=== PATIENT | male | born 1945 | race Caucasian/White ===

== ENCOUNTER 2016-10-08 18:05 | Inpatient (IN) | payer MEDICARE, MEDICAID ==
[~2016-10-08] VITALS: Ht 157.5 cm; Wt 54.4 kg
[~2016-10-08 18:05] MED LIST: ASPI81TA82 PO; ATEN-100 PO; ATOR40TA PO; B-12500T3 PO; DIGO0.12 PO; FLON0.053; GLIM1TAB PO; LISI-360 PO; MECL-62 PO; METF1000 PO; NIAC500T18 PO; OMEP20TA PO; SENITAB; SLO-500T2 PO; SPIR25TA PO; TAMS0.4C67 PO; THEO200T27 PO; [UNRECOGNIZED DRUG - OTHER]
[2016-10-08 18:17] VITALS: BP 126/58; PULSE 105; RESP 16; TEMP 97.8; O2SAT 93
[2016-10-08] MEDS ORDERED: SODIUM CHLOR 0.9% 1000 ML INJ 1,000 ML IV ONE (18:30)
[2016-10-08] MEDS ORDERED: SODIUM CHLORIDE 0.9% FLUSH 10 ML FLUSH IVF PRN (18:30)
[2016-10-08 18:50] LABS: AUTOMATED NEUTROPHIL # 13.8 TH/MM3 (1.8-7.7); BASOPHIL # 0.1 TH/MM3 (0-0.2); BASOPHIL % 0.8 % (0.0-2.0); EOSINOPHIL # 0.1 TH/MM3 (0-0.4); EOSINOPHIL % 0.4 % (0.0-4.0); HEMATOCRIT 30.3 % (39.0-51.0); LYMPH % 4.1 % (9.0-44.0); LYMPHOCYTE # 0.6 TH/MM3 (1.0-4.8); MEAN CELL VOLUME 90.2 FL (80.0-100.0); MEAN CORPUSCULAR HEMOGLOBIN 30.6 PG (27.0-34.0); MEAN CORPUSCULAR HGB CONC 33.9 % (32.0-36.0); MONO % 4.8 % (0.0-8.0); NEUT % 89.9 % (16.0-70.0); PLATELET COUNT 246 TH/MM3 (150-450); RED BLOOD COUNT 3.36 MIL/MM3 (4.50-5.90); RED CELL DISTRIBUTION WIDTH 14.5 % (11.6-17.2); WHITE BLOOD COUNT 15.4 TH/MM3 (4.0-11.0)
[2016-10-08 18:54] LABS: BLOOD, URINE NEG (NEG); GLUCOSE,URINE NEG (NEG); GRANULAR CAST, URINE 5 /lpf; HYALINE CAST, URINE 76 /lpf (RARE); KETONE, URINE NEG (NEG); MUCUS URINE FEW /lpf (OCC); NITRITE,URINE NEG (NEG); PH, URINE 5.5 (5.0-8.5); SQUAMOUS EPITHELIAL CELL URINE 2 /hpf (0-5); TRANSITIONAL EPI CELLS, URINE <1 /hpf; URINE COLOR YELLOW (YELLW/STRAW)
[2016-10-08] MEDS ORDERED: RISP0.5T20 PO (18:54)
[2016-10-08] MEDS ORDERED: LISI10TA3 PO (18:54)
[2016-10-08] MEDS ORDERED: PRIL20CA9 PO (18:54)
[2016-10-08] MEDS ORDERED: GLIM1TAB PO (18:54)
[2016-10-08] MEDS ORDERED: METF1000 PO (18:54)
[2016-10-08] MEDS ORDERED: MECL-62 PO (18:54)
[2016-10-08] MEDS ORDERED: RISP1 PO (18:54)
[2016-10-08] MEDS ORDERED: METO25TA3 PO (18:54)
[2016-10-08] MEDS ORDERED: TAMS0.4C4 PO (18:54)
[2016-10-08] MEDS ORDERED: NIAC500T5 PO (18:54)
[2016-10-08] MEDS ORDERED: ATOR40TA16 PO (18:54)
[2016-10-08] MEDS ORDERED: SPIR25 PO (18:54)
[2016-10-08] MEDS ORDERED: ASPI81CH CHEW (18:54)
[2016-10-08] MEDS ORDERED: VENTAER INH (18:54)
[2016-10-08] MEDS ORDERED: NAPR250T PO (18:54)
[2016-10-08] MEDS ORDERED: LEXA10TA PO (18:54)
[2016-10-08] MEDS ORDERED: FLUT1SPR5 EACH NARE (18:54)
[2016-10-08] MEDS ORDERED: LORA-392 PO (18:54)
[2016-10-08 18:55] LABS: COMMENT (UR) CATH-CULT NOT IND; CULTURE IF INDICATED CATH CULTURE NOT IND
--- NOTE | 2016-10-08 18:57 | RADRPT ---
EXAM DATE/TIME: 10/08/2016 18:54 [place] COMPARISON: No previous studies available for comparison. INDICATIONS : Chest pain MEDICAL HISTORY : Cardiovascular disease. SURGICAL HISTORY : CABG. Fusion, lumbar. ENCOUNTER: Initial ACUITY: 1 day PAIN SCORE: 2/10 LOCATION: Bilateral chest FINDINGS: No infiltrate, effusion or pneumothorax. Suspected hyperexpansion. Heart size normal. Thoracic aorta is tortuous. Patient has had previous median sternotomy. CONCLUSION: No acute cardiopulmonary disease demonstrated. Fred Shanks MD on October 08, 2016 at 18:55 Board Certified Radiologist. This report was verified electronically.
[2016-10-08 19:00] VITALS: BP 126/58; PULSE 90; RESP 16; O2SAT 98
[2016-10-08 19:01] LABS: HEMO FLAGS AUTO DIFF
[2016-10-08 19:08] LABS: ANION GAP 8 MEQ/L (5-15); AST (GOT) 14 U/L (15-37); BICARBONATE 17.3 MEQ/L (21.0-32.0); BLOOD UREA NITROGEN 70 MG/DL (7-18); CHLORIDE 117 MEQ/L (98-107); GLOMERULAR FILTRATION RATE 30 ML/MIN (>89); MAGNESIUM 1.2 MG/DL (1.5-2.5); POTASSIUM 4.4 MEQ/L (3.5-5.1); SODIUM (NA) 142 MEQ/L (136-145)
[2016-10-08 19:12] LABS: ALKALINE PHOSPHATASE 52 U/L (45-117); ALT (GPT) 16 U/L (12-78); TOTAL BILIRUBIN ADULT 0.3 MG/DL (0.2-1.0)
--- NOTE | 2016-10-08 19:14 | PD ---
HPI Chief Complaint: Abnormal Results Time Seen by Provider: 18:21 Travel History International Travel<30 days: No Contact w/Intl Traveler<30days: No Traveled to known affect area: No History of Present Illness HPI This 71-year-old man who presents to the emergency department from [facility] for abnormal labs. Patient has been having a functional decline since he was admitted for back surgery back in May. He reportedly hasn't been eating and drinking well. alf obtain labs that showed worsening renal function, increased white count. Patient was also hypotensive. He was just transferred to the emergency department. EMS reports finding with a blood pressure 50-60 over palpable. This improved rapidly with IV fluids. History Past Medical History Narrative Medical COPD Essential hypertension GERD Depression Hyperlipidemia Diabetes BPH History of prostate cancer Tetanus Vaccination: Unknown Influenza Vaccination: Yes Social History Alcohol Use: No Tobacco Use: No Allergies-Medications (Allergen,Severity, Reaction): Coded Allergies: No Known Allergies (Unverified , 04/29/15) Reported Meds & Prescriptions Reported Meds & Active Scripts Active Digoxin 0.125 mg (Digoxin) 0.125 Mg Tab 0.125 Mg PO DAILY Metformin (Metformin HCl) 1,000 Mg Tab 1,000 Mg PO BID Atorvastatin 40 mg (Atorvastatin Calcium) 40 Mg Tab 1 Tab PO HS Spironolactone 25 Mg Tab 25 Mg PO DAILY Atenolol 25 Mg Tab 25 Mg PO DAILY Lisinopril 10 mg (Lisinopril) 10 Mg Tab 1 Tab PO DAILY Flomax (Tamsulosin HCl) 0.4 Mg Cap 0.4 Mg PO BID Glimepiride 1 Mg Tab 1 Mg PO DAILYAC Omeprazole 20 mg (Omeprazole) 20 Mg Tab 1 Tab PO DAILY Meclizine Hcl (Meclizine HCl) 25 Mg Tab 25 Mg PO BID PRN Flonase (Fluticasone Propionate) 0.05 % Naspr 1 Spr NA DAILY 30 Days 1 SPRAY EACH NOSTRIL Niacin (Niacinamide) 500 Mg Tab 500 Mg PO HS 30 Days Theophylline Er (Theophylline) 200 Mg Tab 400 Mg PO DAILY 30 Days Reported Ventolin Hfa 18 GM Inh (Albuterol Sulfate) 90 Mcg/Act Aer 2 Puff INH Q6H PRN Tamsulosin (Tamsulosin HCl) 0.4 Mg Cap 0.4 Mg PO BID Risperdal (Risperidone) 1 Mg Tab 1 Mg PO HS Risperdal (Risperidone) 0.5 Mg Tab 0.5 Mg PO DAILY Prilosec (Omeprazole) 20 Mg Cap 20 Mg PO DAILY Niacin 500 Mg Tab 500 Mg PO TID Naproxen 250 Mg Tab 250 Mg PO BID Metoprolol Tartrate 25 Mg Tab 25 Mg PO BID Metformin (Metformin HCl) 1,000 Mg Tab 1,000 Mg PO BIDPC With meals Meclizine (Meclizine HCl) 25 Mg Tab 25 Mg PO DIRECTED PRN Lisinopril 10 Mg Tab 10 Mg PO DAILY Lexapro (Escitalopram Oxalate) 10 Mg Tab 10 Mg PO DAILY Glimepiride 1 Mg Tab 1 Mg PO DAILY Take with breakfast or first main meal Flonase Nasal [place] (Fluticasone Nasal [place]) 50 Mcg/Act [place] 50 Mcg EACH NARE BID Atorvastatin (Atorvastatin Calcium) 40 Mg Tab 40 Mg PO HS Ativan (Lorazepam) 0.5 Mg Tab 0.5 Mg PO Q6H PRN Aspirin 81 Mg Chew 81 Mg CHEW DAILY Aldactone (Spironolactone) 25 Mg Tab 25 Mg PO DAILY Slo-Niacin (Niacin) 500 Mg Tab 500 Mg PO DAILY Senior Multivitamin Plus (Multiple Vitamins W/ Minerals) Unknown Strength Tab Unknown Dose B-12 (Cyanocobalamin) 500 Mcg Tab 500 Mcg PO DAILY [[facility] probiotics] Unknown Strength Unknown Dose Aspir-81 (Aspirin) 81 Mg Tab 81 Mg PO DAILY Review of Systems ROS Limitations: Clinical Condition Physical Exam Narrative GENERAL: 71 year-old man, appears older than his stated age. Appears weak and frail. SKIN: Focused skin assessment warm/dry. Decreased skin turgor. HEAD: Atraumatic. Normocephalic. EYES: Pupils equal and round. No scleral icterus. No injection or drainage. ENT: No nasal bleeding or discharge. Mucous membranes pink and moist. NECK: Trachea midline. No JVD. CARDIOVASCULAR: Regular rate and rhythm. No murmur appreciated. RESPIRATORY: No accessory muscle use. Clear to auscultation. Breath sounds equal bilaterally. GASTROINTESTINAL: Abdomen soft, non-tender, nondistended. Hepatic and splenic margins not palpable. MUSCULOSKELETAL: No obvious deformities. No edema. NEUROLOGICAL: Awake and alert. Confused. No obvious cranial nerve deficits. Motor grossly within normal limits. Normal speech. Data Data Last Documented VS Vital Signs Date Time Temp Pulse Resp B/P Pulse Ox O2 Delivery O2 Flow Rate FiO2 10/08/16 18:34 96 3 10/08/16 18:21 Nasal Cannula 10/08/16 18:17 97.8 105 16 126/58 Orders Electrocardiogram (10/08/16 18:21) Complete Blood Count With Diff (10/08/16 18:21) Comprehensive Metabolic Panel (10/08/16 18:21) Magnesium (Mg) (10/08/16 18:) Troponin I (10/08/16 18:) Chest, Single Ap (10/08/16 18:21) Ecg Monitoring (10/08/16 18:) Iv Access Insert/Monitor (10/08/16 18:) Oximetry (10/08/16 18:) Oxygen Administration (10/08/16 18:) Sodium Chloride 0.9% Flush (Ns Flush) (10/08/16 18:30) Urinalysis - C+S If Indicated (10/08/16 18:) Cath For Specimen (10/08/16 18:) Sodium Chlor 0.9% 1000 Ml Inj (Ns 1000 M (10/08/16 18:30) Labs Laboratory Tests Test 10/08/16 18:30 White Blood Count 15.4 TH/MM3 Red Blood Count 3.36 MIL/MM3 Hemoglobin 10.3 GM/DL Hematocrit 30.3 % Mean Corpuscular Volume 90.2 FL Mean Corpuscular Hemoglobin 30.6 PG Mean Corpuscular Hemoglobin 33.9 % Concent Red Cell Distribution Width 14.5 % Platelet Count 246 TH/MM3 Mean Platelet Volume 6.3 FL Neutrophils (%) (Auto) 89.9 % Lymphocytes (%) (Auto) 4.1 % Monocytes (%) (Auto) 4.8 % Eosinophils (%) (Auto) 0.4 % Basophils (%) (Auto) 0.8 % Neutrophils # (Auto) 13.8 TH/MM3 Lymphocytes # (Auto) 0.6 TH/MM3 Monocytes # (Auto) 0.7 TH/MM3 Eosinophils # (Auto) 0.1 TH/MM3 Basophils # (Auto) 0.1 TH/MM3 CBC Comment AUTO DIFF Urine Color YELLOW Urine Turbidity HAZY Urine pH 5.5 Urine Specific [place] 1.020 Urine Protein 30 mg/dL Urine Glucose (UA) NEG mg/dL Urine Ketones NEG mg/dL Urine Occult Blood NEG Urine Nitrite NEG Urine Bilirubin NEG Urine Urobilinogen LESS THAN 2.0 MG/DL Urine Leukocyte Esterase NEG Urine RBC LESS THAN 1 /hpf Urine WBC 4 /hpf Urine Squamous Epithelial 2 /hpf Cells Urine Transitional Epithelial <1 /hpf Cells Urine Hyaline Casts 76 /lpf Urine Granular Casts 5 /lpf Urine Mucus FEW /lpf Microscopic Urinalysis Comment CATH-CULT NOT IND Sodium Level 142 MEQ/L Potassium Level 4.4 MEQ/L Chloride Level 117 MEQ/L Carbon Dioxide Level 17.3 MEQ/L Anion Gap 8 MEQ/L Blood Urea Nitrogen 70 MG/DL Creatinine 2.21 MG/DL Estimat Glomerular Filtration 30 ML/MIN Rate Random Glucose 93 MG/DL Calcium Level 7.8 MG/DL Magnesium Level 1.2 MG/DL Aspartate Amino Transf 14 U/L (AST/SGOT) Albumin 2.3 GM/DL [facility] Medical Decision Making Medical Screen Exam Complete: Yes Emergency Medical Condition: Yes Differential Diagnosis Dehydration, renal failure, infection, electrolyte abnormality, other Narrative Course Medical decision making INITIAL: 71-year-old male presents emergency department for abnormal labs. Results show that he had a white count of 5.9 on the first of this month TO 19.2. He also had a BUN and creatinine of 38/1.1 now up to 79/2.3 indicative of prerenal azotemia and acute kidney injury. Etiology could be simply dehydration and drinking. Worsening intrinsic renal function, infection, renal artery stenosis, obstructive uropathy also possible. We'll check labs, x-ray, reassess. Patient was signed out to the oncoming physician at 7 PM for follow-up of diagnostic testing and likely admission. Chuckie Borrero MD Oct 08, 2016 19:14
--- NOTE | 2016-10-08 19:14 | PD ---
Data Data Last Documented VS Vital Signs Date Time Temp Pulse Resp B/P Pulse Ox O2 Delivery O2 Flow Rate FiO2 10/08/16 18:34 96 3 10/08/16 18:21 Nasal Cannula 10/08/16 18:17 97.8 105 16 126/58 Orders Electrocardiogram (10/08/16 18:21) Complete Blood Count With Diff (10/08/16 18:21) Comprehensive Metabolic Panel (10/08/16 18:) Magnesium (Mg) (10/08/16 18:) Troponin I (10/08/16 18:21) Chest, Single Ap (10/08/16 18:21) Ecg Monitoring (10/08/16 18:) Iv Access Insert/Monitor (10/08/16 18:) Oximetry (10/08/16 18:) Oxygen Administration (10/08/16 18:) Sodium Chloride 0.9% Flush (Ns Flush) (10/08/16 18:30) Urinalysis - C+S If Indicated (10/08/16 18:) Cath For Specimen (10/08/16 18:) Sodium Chlor 0.9% 1000 Ml Inj (Ns 1000 M (10/08/16 18:30) Labs Laboratory Tests Test 10/08/16 18:30 White Blood Count 15.4 TH/MM3 Red Blood Count 3.36 MIL/MM3 Hemoglobin 10.3 GM/DL Hematocrit 30.3 % Mean Corpuscular Volume 90.2 FL Mean Corpuscular Hemoglobin 30.6 PG Mean Corpuscular Hemoglobin 33.9 % Concent Red Cell Distribution Width 14.5 % Platelet Count 246 TH/MM3 Mean Platelet Volume 6.3 FL Neutrophils (%) (Auto) 89.9 % Lymphocytes (%) (Auto) 4.1 % Monocytes (%) (Auto) 4.8 % Eosinophils (%) (Auto) 0.4 % Basophils (%) (Auto) 0.8 % Neutrophils # (Auto) 13.8 TH/MM3 Lymphocytes # (Auto) 0.6 TH/MM3 Monocytes # (Auto) 0.7 TH/MM3 Eosinophils # (Auto) 0.1 TH/MM3 Basophils # (Auto) 0.1 TH/MM3 CBC Comment AUTO DIFF Differential Comment AUTO DIFF CONFIRMED Platelet Estimate NORMAL Platelet Morphology Comment NORMAL Ovalocytes 1+ Keratocytes 1+ Urine Color YELLOW Urine Turbidity HAZY Urine pH 5.5 Urine Specific [place] 1.020 Urine Protein 30 mg/dL Urine Glucose (UA) NEG mg/dL Urine Ketones NEG mg/dL Urine Occult Blood NEG Urine Nitrite NEG Urine Bilirubin NEG Urine Urobilinogen LESS THAN 2.0 MG/DL Urine Leukocyte Esterase NEG Urine RBC LESS THAN 1 /hpf Urine WBC 4 /hpf Urine Squamous Epithelial 2 /hpf Cells Urine Transitional Epithelial <1 /hpf Cells Urine Hyaline Casts 76 /lpf Urine Granular Casts 5 /lpf Urine Mucus FEW /lpf Microscopic Urinalysis Comment CATH-CULT NOT IND Sodium Level 142 MEQ/L Potassium Level 4.4 MEQ/L Chloride Level 117 MEQ/L Carbon Dioxide Level 17.3 MEQ/L Anion Gap 8 MEQ/L Blood Urea Nitrogen 70 MG/DL Creatinine 2.21 MG/DL Estimat Glomerular Filtration 30 ML/MIN Rate Random Glucose 93 MG/DL Calcium Level 7.8 MG/DL Magnesium Level 1.2 MG/DL Total Bilirubin 0.3 MG/DL Aspartate Amino Transf 14 U/L (AST/SGOT) Alanine Aminotransferase 16 U/L (ALT/SGPT) Alkaline Phosphatase 52 U/L Troponin I 0.05 NG/ML Total Protein 5.1 GM/DL Albumin 2.3 GM/DL MDM Medical Record Reviewed: Yes Supervised Visit with FLORECITA: No Narrative Course During the course of the patients emergency department visit, the patients history, examination, and differential diagnosis were reviewed with the patient. The patient had IV access obtained and blood work sent for analysis. The patient's case was checked out to me by Dr. Borrero who requested that I review the patient's laboratory studies and admit the patient. The patient is currently a resident at a care home. According to the patient's family member at the bedside the patient has been progressively decompensating since of back surgery in May 2016. The patient was sent to the emergency department for abnormal laboratory studies. The patient was noted to have a creatinine elevated from normal up to 3 with an associated elevated BUN. The patient has also not been eating or drinking well. The patient was diagnosed prior to his low back surgery with mild dementia that has progressed rapidly since his surgery. The patient was also noted on blood work prior to arrival he had a white count of 19,000. A workup has an safe to further evaluate for underlying infectious process as well as electrolyte derangements. The patient was initially provided normal saline IV fluids. The patients laboratory studies were reviewed and remarkable for white count of 15.4, hemoglobin 10.3, platelets 246 with 89.9 neutrophils, lymphocytes 4.1. CMP is remarkable for a chloride of 117, CO2 is low at 17.3 suspected to be related to dehydration, BUN 70, creatinine 2.21, glucose 93, calcium 7.8, magnesium 1.2 both of these will be supplemented IV, AST 14, total protein 5.1, albumin 2.3, urinalysis shows 30 protein, otherwise unremarkable. Radiology studies were reviewed and remarkable for a chest x-ray that shows no acute cardiopulmonary disease. The patients results were discussed with the patient, including the plan of care. I explained that further testing and/ or monitoring is indicated based on the patients history, examination, and/ or laboratory findings. Therefore, I recommended admission for additional evaluation. The patient expressed understanding and was agreeable with this plan. The patient was admitted to the hospital in stable condition and sent to a bed under the care of the [facility]. Physician Communication Physician Communication The patient's case will be discussed with Dr. Coates for admission. Diagnosis Primary Impression: Dehydration Additional Impressions: Acute renal failure Qualified Code: N17.9 - Acute renal failure, unspecified acute renal failure type Leukocytosis Qualified Code: D72.829 - Leukocytosis, unspecified type Hypomagnesemia Hypocalcemia Admitting Information Admitting Physician Requests: Admit Lorelei Little MD Oct 08, 2016 19:14
[2016-10-08 19:23] LABS: KERATOCYTES 1+ (NORMAL); OVALOCYTES 1+ (NORMAL); PLATELET ESTIMATE SMEAR NORMAL (NORMAL); PLATELET MORPHOLOGY NORMAL (NORMAL); SCAN/DIFF AUTO DIFF CONFIRMED
[2016-10-08] MEDS ORDERED: CALCIUM GLUCONATE INJ 1 GM in DEXTROSE 5% IN WATER 100ML INJ 100 ML IV ONE ×2 (20:00)
[2016-10-08] MEDS ORDERED: risperiDONE 0.5 MG TAB PO ONE (20:30)
[2016-10-08] MEDS ORDERED: NALOXONE HCL 0.4 MG/ML AMP IV PRN (20:30)
[2016-10-08] MEDS ORDERED: SODIUM CHLORIDE 0.9% FLUSH 10 ML FLUSH IV FLUSH PRN (20:30)
[2016-10-08 21:00] VITALS: BP 101/51; PULSE 95; RESP 17; TEMP 97.8; O2SAT 97
[2016-10-08] MEDS: MAGNESIUM SULFATE 1 GM PREMIX 100 ML IV SCH ×2 (21:34→21:57)
[2016-10-08] MEDS: SODIUM CHLORIDE 0.9% FLUSH 10 ML FLUSH IV FLUSH SCH (21:34)
--- NOTE | 2016-10-08 21:47 | EKG ---
Date Performed: 10/08/2016 Time Performed: 18:34:36 PTAGE: 71 years EKG: BASELINE ARTIFACT PRESENT. Probable Sinus rhythm with premature ventricular contraction POSSIBLE LEFT ATRIAL ENLARGEMENT SEPTAL MYOCARDIAL INFARCTION ABNORMAL ECG Would repeat electrocardiogram NO PREVIOUS TRACING DOCTOR: Roosevelt Philip Interpretating Date/Time 10/08/2016 21:46:20
--- NOTE | 2016-10-08 22:39 | HHI.HP ---
HPI Service [facility] Primary Care Physician Jignesh Alba MD Admission Diagnosis Dehydration, hypomag, hypocalcemia, ARF Diagnoses: (1) Diarrhea (2) Dementia with aggressive behavior (3) Declining functional status (4) Leukocytosis (5) Acute renal failure (6) Dehydration (7) Hypomagnesemia Chief Complaint: Patient has been increasingly weak and has had abnormal blood work results at his senior care facility Travel History International Travel<30 Days: No Contact w/Intl Traveler <30 Da: No Traveled to Known Affected Are: No History of Present Illness Mr. Scott is a 71 year-old male with a history of coronary artery disease status post quintuple cardiac bypass in 1996, CHF, type 2 diabetes mellitus, hypertension, hyperlipidemia, COPD, prostate cancer status post radiation treatment 2012, and chronic back pain related to degenerative disc disease who presented to the ER on 10/08/2016 from [facility] for evaluation of abnormal labs obtained at the facility: Worsening renal function, increased white count. The patient has been having functional decline following back surgery performed in June 12, 2017. The patient was reportedly initially hypotensive and improved with IV fluids per EMS. Leukocytosis is noted with white blood count of 15.4 with neutrophilia. The patient also has anemia with hemoglobin 10.3. Prerenal azotemia is present with BUN 70, creatinine 2.21, and estimated GFR 30. Hypomagnesemia noted with magnesium level I.2. The patient is quite lethargic and has some cognitive impairments. Much of history was taken from patient's sister Neela Rivera at bedside. Current functional status: Walks with help of a walker, able to feed self No nausea or vomiting, no fever Not eating or drinking well x 3 weeks Not sure if he's been having diarrhea in facility but had watery diarrhea here in ER No Daniels prior to ER visit BP has been low since Saturday Worsening dementia since back surgery June 12, 2017 - went home and fell - back to hospital ([facility] 06/26/16) Mid June he went to rehab and has been there since Symptoms per patient report: Denies cp, nausea, abdominal pain, Reports diarrhea for a few days No burning or pain with urination, no hematuria No black or red stool No syncope Had previously seen a physician at [facility] . Review of Systems Except as stated in HPI: all other systems reviewed are Neg Past Family Social History Past Medical History Type 2 diabetes mellitus diagnosed about 12 years ago Hypertension Hyperlipidemia COPD CHF Prostate cancer status post 45 radiation treatments 2013 Left Achilles tendon rupture 2003 Bilateral hernia Disc herniation at C4 Degenerative disc disease Glaucoma Thalidomide exposure prenatally . 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 Reported Medications Reported Meds & Active Scripts Active Digoxin 0.125 mg (Digoxin) 0.125 Mg Tab 0.125 Mg PO DAILY Metformin (Metformin HCl) 1,000 Mg Tab 1,000 Mg PO BID Atorvastatin 40 mg (Atorvastatin Calcium) 40 Mg Tab 1 Tab PO HS Spironolactone 25 Mg Tab 25 Mg PO DAILY Atenolol 25 Mg Tab 25 Mg PO DAILY Lisinopril 10 mg (Lisinopril) 10 Mg Tab 1 Tab PO DAILY Flomax (Tamsulosin HCl) 0.4 Mg Cap 0.4 Mg PO BID Glimepiride 1 Mg Tab 1 Mg PO DAILYAC Omeprazole 20 mg (Omeprazole) 20 Mg Tab 1 Tab PO DAILY Meclizine Hcl (Meclizine HCl) 25 Mg Tab 25 Mg PO BID PRN Flonase (Fluticasone Propionate) 0.05 % Naspr 1 Spr NA DAILY 30 Days 1 SPRAY EACH NOSTRIL Niacin (Niacinamide) 500 Mg Tab 500 Mg PO HS 30 Days Theophylline Er (Theophylline) 200 Mg Tab 400 Mg PO DAILY 30 Days Reported Ventolin Hfa 18 GM Inh (Albuterol Sulfate) 90 Mcg/Act Aer 2 Puff INH Q6H PRN Tamsulosin (Tamsulosin HCl) 0.4 Mg Cap 0.4 Mg PO BID Risperdal (Risperidone) 1 Mg Tab 1 Mg PO HS Risperdal (Risperidone) 0.5 Mg Tab 0.5 Mg PO DAILY Prilosec (Omeprazole) 20 Mg Cap 20 Mg PO DAILY Niacin 500 Mg Tab 500 Mg PO TID Naproxen 250 Mg Tab 250 Mg PO BID Metoprolol Tartrate 25 Mg Tab 25 Mg PO BID Metformin (Metformin HCl) 1,000 Mg Tab 1,000 Mg PO BIDPC With meals Meclizine (Meclizine HCl) 25 Mg Tab 25 Mg PO DIRECTED PRN Lisinopril 10 Mg Tab 10 Mg PO DAILY Lexapro (Escitalopram Oxalate) 10 Mg Tab 10 Mg PO DAILY Glimepiride 1 Mg Tab 1 Mg PO DAILY Take with breakfast or first main meal Flonase Nasal [place] (Fluticasone Nasal [place]) 50 Mcg/Act [place] 50 Mcg EACH NARE BID Atorvastatin (Atorvastatin Calcium) 40 Mg Tab 40 Mg PO HS Ativan (Lorazepam) 0.5 Mg Tab 0.5 Mg PO Q6H PRN Aspirin 81 Mg Chew 81 Mg CHEW DAILY Aldactone (Spironolactone) 25 Mg Tab 25 Mg PO DAILY Slo-Niacin (Niacin) 500 Mg Tab 500 Mg PO DAILY Senior Multivitamin Plus (Multiple Vitamins W/ Minerals) Unknown Strength Tab Unknown Dose B-12 (Cyanocobalamin) 500 Mcg Tab 500 Mcg PO DAILY [[facility] probiotics] Unknown Strength Unknown Dose Aspir-81 (Aspirin) 81 Mg Tab 81 Mg PO DAILY . Allergies: Coded Allergies: No Known Allergies (Unverified , 04/29/15) Active Ordered Medications Current Medications Sodium Chloride 2 ml 2 ml UNSCH PRN IVF FLUSH AFTER USING IV ACCESS; Start at 18:30; Stop 10/08/16 at 20:34; Status DC Sodium Chloride 1,000 ml @ 2,000 mls/hr Q30M ONCE IV Last administered on 10/08 21:33; Start 10/08/16 at 18:30; Stop 10/08/16 at 18:59; Status DC Calcium Gluconate 1 gm/Dextrose 110 ml @ 110 mls/hr ONCE ONCE IV Last administered on 10/08/16 21:34; Start 10/08/16 at 20:00; Stop 10/08/16 at 20:59 ; Status DC Magnesium Sulfate/ Dextrose (Magnesium Sulfate 1 Gm Premix) 100 ml @ 100 mls/ hr Q1H IV Last administered on 10/08/16 21:57; Start 10/08/16 at 20:00; Stop 10/08/16 at 21:59; Status DC Risperidone (risperDAL) 0.5 mg ONCE ONCE PO Last administered on 10/08/16 21: 56; Start 10/08/16 at 20:30; Stop 10/08/16 at 20:31; Status DC Sodium Chloride (NS Flush) 2 ml UNSCH PRN IV FLUSH FLUSH AFTER USING IV ACCESS ; Start 10/08/16 at 20:30 Sodium Chloride (NS Flush) 2 ml BID IV FLUSH Last administered on 10/08/16t 21: 34; Start 10/08/16 at 21:00 Naloxone HCl (Narcan Inj) 0.4 mg UNSCH PRN IV SEE LABEL COMMENTS; Start at 20:30 . Family History heart problems, CVA . Social History Tobacco: Smoked 1 pack per day for 30 years but quit in 1996 Alcohol: "a little" socially per sister Illicit Drugs: Denied by sister . Physical Exam Vital Signs Vital Signs Date Time Temp Pulse Resp B/P Pulse Ox O2 Delivery O2 Flow Rate FiO2 10/08/16 18:34 96 3 10/08/16 18:21 98 Nasal Cannula 2 10/08/16 18:17 97.8 105 16 126/58 93 Physical Exam GENERAL: This is a pale, cachectic elderly male patient, who appears somewhat lethargic. SKIN: No rashes, ecchymoses or lesions. Cool and dry. HEAD: Atraumatic. Normocephalic. Temporal wasting noted. EYES: No scleral icterus. No injection or drainage. ENT: Nose without bleeding, purulent drainage. NECK: Trachea midline. No JVD or lymphadenopathy. CARDIOVASCULAR: Regular rate and rhythm without murmurs, gallops, or rubs. RESPIRATORY: Clear to auscultation. Breath sounds equal bilaterally. No wheezes , rales, or rhonchi. GASTROINTESTINAL: Abdomen soft, non-tender, nondistended. No guarding. MUSCULOSKELETAL: Extremities without clubbing, cyanosis, or edema. No calf tenderness. NEUROLOGICAL: Able to be awakened but lives mostly with his eyes closed and appears lethargic. Answers questions appropriately to the best of his cognitive ability. . Laboratory Laboratory Tests Test 10/08/16 18:30 White Blood Count 15.4 Red Blood Count 3.36 Hemoglobin 10.3 Hematocrit 30.3 Mean Corpuscular Volume 90.2 Mean Corpuscular Hemoglobin 30.6 Mean Corpuscular Hemoglobin 33.9 Concent Red Cell Distribution Width 14.5 Platelet Count 246 Mean Platelet Volume 6.3 Neutrophils (%) (Auto) 89.9 Lymphocytes (%) (Auto) 4.1 Monocytes (%) (Auto) 4.8 Eosinophils (%) (Auto) 0.4 Basophils (%) (Auto) 0.8 Neutrophils # (Auto) 13.8 Lymphocytes # (Auto) 0.6 Monocytes # (Auto) 0.7 Eosinophils # (Auto) 0.1 Basophils # (Auto) 0.1 CBC Comment AUTO DIFF Differential Comment AUTO DIFF CONFIRMED Platelet Estimate NORMAL Platelet Morphology Comment NORMAL Ovalocytes 1+ Keratocytes 1+ Urine Color YELLOW Urine Turbidity HAZY Urine pH 5.5 Urine Specific [place] 1.020 Urine Protein 30 Urine Glucose (UA) NEG Urine Ketones NEG Urine Occult Blood NEG Urine Nitrite NEG Urine Bilirubin NEG Urine Urobilinogen LESS THAN 2.0 Urine Leukocyte Esterase NEG Urine RBC LESS THAN 1 Urine WBC 4 Urine Squamous Epithelial 2 Cells Urine Transitional Epithelial <1 Cells Urine Hyaline Casts 76 Urine Granular Casts 5 Urine Mucus FEW Microscopic Urinalysis Comment CATH-CULT NOT IND Sodium Level 142 Potassium Level 4.4 Chloride Level 117 Carbon Dioxide Level 17.3 Anion Gap 8 Blood Urea Nitrogen 70 Creatinine 2.21 Estimat Glomerular Filtration 30 Rate Random Glucose 93 Calcium Level 7.8 Magnesium Level 1.2 Total Bilirubin 0.3 Aspartate Amino Transf 14 (AST/SGOT) Alanine Aminotransferase 16 (ALT/SGPT) Alkaline Phosphatase 52 Troponin I 0.05 Total Protein 5.1 Albumin 2.3 Result Diagram: 10/08/160 10/08/16 183 Imaging Last Impressions Chest X-Ray 10/08/16 1821 Signed Impressions: Service Date/Time: Saturday, October 08, 2016 18:54 - CONCLUSION: No acute cardiopulmonary disease demonstrated. Fred Shanks MD . Assessment and Plan Problem List: (1) Diarrhea ICD Code: R19.7 Status: Acute (2) Dementia with aggressive behavior ICD Code: F03.91 Status: Acute (3) Declining functional status ICD Code: R53.81 Status: Acute (4) Leukocytosis ICD Code: D72.829 Status: Acute (5) Hypomagnesemia ICD Code: E83.42 Status: Acute (6) Acute renal failure ICD Code: N17.9 Status: Acute (7) Dehydration ICD Code: E86.0 Status: Acute Assessment and Plan Mr. Scott is a 71 year-old male who presented to the ER on 10/08/2016 from [facility] for evaluation of abnormal labs obtained at the facility: Worsening renal function, increased white count. The patient has been having functional/cognitive decline following back surgery performed in June 12, 2017. Diarrhea- lives at SNF - concern for C. Diff - check for c. diff - consider CT abdomen/pelvis if testing negative and symptoms persist Dementia with aggressive behaviors since June 12, 2016 surgery; now with accompanying functional decline - check CT of head for organic causes - check EEG to r/o seizure activity Leukocytosis - white blood count of 15.4 with neutrophilia. - CXR with no acute cardiopulmonary disease - Afebrile in ER - patient with diarrhea - infectious gastroenteritis? - Repeat CBC in a.m. and follow results Anemia - hemoglobin 10.3, hct 30.3. - no prior labs for comparison - Repeat CBC in a.m. and follow results Acute renal failure/prerenal azotemia likely secondary to dehydration - BUN 70, creatinine 2.21, and estimated GFR 30. - NS bolus given in ER - Recheck bmp in a.m. and follow results Hypomagnesemia - Magnesium level I.2 - Replacement given in ER - Recheck magnesium level in a.m. and replace as needed DVT prophylaxis - Heparin 5000 units q8h subq Written by Jaz Rivera, acting as scribe for Dr. Coates on 10/08/16 at 22:39. This note was transcribed by scribe [Jaz Rivera]. I, Dr. Dante Coates personally performed the history, physical exam, and medical decision making; and confirmed the accuracy of the information in the transcribed note. Authenticated by Dr. Dante Coates on 10/08/16 at 22:39. Code Status DNR signed by patient on chart dated 07/04/2016 also confirmed DNR code status with healthcare surrogate Neela Rivera, sister at bedside . Discussed Condition With ER physician and patient's sister . Physician Certification 2 Midnight Certification Type: Admission for Inpatient Services Order for Inpatient Services The services are ordered in accordance with Medicare regulations or non- Medicare payer requirements, as applicable. In the case of services not specified as inpatient-only, they are appropriately provided as inpatient services in accordance with the 2-midnight benchmark. Estimated LOS (days): 3 days is the estimated time the patient will need to remain in the hospital, assuming treatment plan goals are met and no additional complications. Post-Hospital Plan: SNF Problem Qualifiers (1) Leukocytosis: Qualified Code: D72.829 - Leukocytosis, unspecified type (2) Acute renal failure: Qualified Code: N17.9 - Acute renal failure, unspecified acute renal failure type Jaz Rivera Oct 08, 2016 22:39 Dante Coates MD Oct 09, 2016 07:57
[2016-10-08 23:21] VITALS: BP 134/60; PULSE 100; RESP 20; TEMP 98.1; O2SAT 100
[2016-10-09] VITALS (9 sets, daily range): BP systolic 90–130; BP diastolic 50–58; PULSE 20–101; RESP 16–20; TEMP 97.5–98.6; O2SAT 92–98
[2016-10-09] MEDS: HEPARIN SODIUM - SQ 10,000 UNITS/ML VIAL SQ SCH ×4 (00:53→20:50)
--- NOTE | 2016-10-09 00:56 | RADRPT ---
EXAM DATE/TIME: 10/09/2016 00:46 [place] COMPARISON: No previous studies available for comparison. INDICATIONS : Altered mental status. RADIATION DOSE: 37.89 CTDIvol (mGy) MEDICAL HISTORY : Cardiovascular disease. Diabetes mellitus type 2. Carcinoma, prostate.COPD SURGICAL HISTORY : CABG ENCOUNTER: Initial ACUITY: 1 day PAIN SCALE: 0/10 LOCATION: cranial TECHNIQUE: Multiple contiguous axial images were obtained of the head. Using automated exposure control and adj ustment of the mA and/or kV according to patient size, radiation dose was kept as low as reasonably a chievable to obtain optimal diagnostic quality images. FINDINGS: CEREBRUM: The ventricles are normal for age. No evidence of midline shift, mass lesion, hemorrhage or acute in farction. No extra-axial fluid collections are seen. POSTERIOR FOSSA: The cerebellum and brainstem are intact. The 4th ventricle is midline. The cerebellopontine angle i s unremarkable. EXTRACRANIAL: The visualized portion of the orbits is intact. Air-fluid level in both maxillary sinuses SKULL: The calvaria is intact. No evidence of skull fracture. CONCLUSION: Normal examination except fluid in both maxillary sinuses. Chuckie Pinedo MD on October 09, 2016 at 0:54 Board Certified Radiologist. This report was verified electronically.
[2016-10-09 03:48] LABS: C. DIFF EPI 027 PRESUMPTIVE NEGATIVE (NEGATIVE); C. DIFF TOXIN PCR NEGATIVE (NEGATIVE)
[2016-10-09 07:17] LABS: AUTOMATED NEUTROPHIL # 10.1 TH/MM3 (1.8-7.7); BASOPHIL % 0.2 % (0.0-2.0); EOSINOPHIL # 0.1 TH/MM3 (0-0.4); EOSINOPHIL % 0.5 % (0.0-4.0); HEMATOCRIT 28.7 % (39.0-51.0); HEMO FLAGS DIFF FINAL; LYMPH % 6.5 % (9.0-44.0); LYMPHOCYTE # 0.7 TH/MM3 (1.0-4.8); MEAN CELL VOLUME 88.7 FL (80.0-100.0); MEAN CORPUSCULAR HEMOGLOBIN 30.2 PG (27.0-34.0); MEAN CORPUSCULAR HGB CONC 34.1 % (32.0-36.0); MONO % 4.9 % (0.0-8.0); NEUT % 87.9 % (16.0-70.0); PLATELET COUNT 211 TH/MM3 (150-450); RED BLOOD COUNT 3.23 MIL/MM3 (4.50-5.90); RED CELL DISTRIBUTION WIDTH 14.4 % (11.6-17.2); WHITE BLOOD COUNT 11.5 TH/MM3 (4.0-11.0)
[2016-10-09 07:58] LABS: BICARBONATE 18.1 MEQ/L (21.0-32.0); POTASSIUM 4.5 MEQ/L (3.5-5.1)
[2016-10-09] MEDS: ESCITALOPRAM OXALATE 10 MG TAB PO SCH (08:38)
[2016-10-09] MEDS: PANTOPRAZOLE SOD 20 MG DELAYED RELEASE TAB PO SCH (08:38)
[2016-10-09] MEDS: METOPROLOL TARTRATE 25 MG TAB PO SCH ×2 (08:38→20:49)
[2016-10-09] MEDS: ASPIRIN 81 MG CHEW TAB CHEW SCH (08:38)
[2016-10-09] MEDS: TAMSULOSIN HCL 0.4 MG CAP PO SCH ×2 (08:38→20:49)
[2016-10-09] MEDS: NIACIN 500 MG EXTENDED RELEASE TAB PO SCH ×3 (08:38→17:32)
[2016-10-09] MEDS: LISINOPRIL 10 MG TAB PO SCH (08:39)
[2016-10-09] MEDS: SODIUM CHLORIDE 0.9% FLUSH 10 ML FLUSH IV FLUSH SCH ×2 (08:39→20:49)
[2016-10-09] MEDS: risperiDONE 0.5 MG TAB PO SCH (08:40)
--- NOTE | 2016-10-09 11:47 | HHI.PR ---
Subjective Remarks Patient in nad, appears tired. He was able however to walk with PT in the morning. Says he feels tired. He is also complaining of productive cough yellow sputum. Says he does have COPD however he is not feeling much wheezing. Doesn't have O2 at home. Doesn't have a pulm. No fevers or chills. No n/v/d/c. Says he is not eating much. Denies chest pain, n/v/d/c. Objective Vitals Vital Signs Date Time Temp Pulse Resp B/P Pulse Ox O2 Delivery O2 Flow Rate FiO2 10/09/16 08:10 98 Nasal Cannula 2.00 10/09/16 08:08 101 10/09/16 07:56 98.6 91 18 110/55 92 10/09/16 04:43 97.6 20 20 104/55 95 10/09/16 03:13 95 10/09/16 00:55 98.5 90 20 130/58 98 10/08/16 23:21 98.1 100 20 134/60 100 10/08/16 21:00 97.8 95 17 101/51 97 Room Air 10/08/16 19:00 90 16 126/58 98 Nasal Cannula 2 10/08/16 18:34 96 3 10/08/16 18:21 98 Nasal Cannula 2 10/08/16 18:17 97.8 105 16 126/58 93 I/O 10/08/16 10/08/16 10/08/16 10/09/16 10/09/16 10/09/16 07:00 15:00 23:00 07:00 15:00 23:00 Intake Total 240 ml Balance 240 ml Intake Oral 240 ml # Voids 1 1 # Bowel Movements 1 Result Diagram: 10/09/16 0624 10/09/16 0624 Imaging Last Impressions Chest X-Ray 10/08/16 1821 Signed Impressions: Service Date/Time: Saturday, October 08, 2016 18:54 - CONCLUSION: No acute cardiopulmonary disease demonstrated. Fred Shanks MD Head CT 10/08/16 0000 Signed Impressions: Service Date/Time: Sunday, October 09, 2016 00:46 - CONCLUSION: Normal examination except fluid in both maxillary sinuses. Chuckie Pinedo MD Objective Remarks GENERAL: This is a pale, cachectic elderly male patient, who appears tired. SKIN: No rashes, ecchymoses or lesions. Cool and dry. HEAD: Atraumatic. Normocephalic. Temporal wasting noted. EYES: No scleral icterus. No injection or drainage. ENT: Nose without bleeding, purulent drainage. NECK: Trachea midline. No JVD or lymphadenopathy. CARDIOVASCULAR: Regular rate and rhythm without murmurs, gallops, or rubs. RESPIRATORY: Decreased breath sounds. + Cough. No wheezes, rales, or rhonchi. GASTROINTESTINAL: Abdomen soft, non-tender, nondistended. No guarding. MUSCULOSKELETAL: Extremities without clubbing, cyanosis, or edema. No calf tenderness. NEUROLOGICAL: Alert and oriented, appears tired. Answers questions appropriately to the best of his cognitive ability. A/P Problem List: (1) Diarrhea ICD Code: R19.7 Status: Acute (2) Dementia with aggressive behavior ICD Code: F03.91 Status: Acute (3) Declining functional status ICD Code: R53.81 Status: Acute (4) Leukocytosis ICD Code: D72.829 Status: Acute (5) Hypomagnesemia ICD Code: E83.42 Status: Acute (6) Acute renal failure ICD Code: N17.9 Status: Acute (7) Dehydration ICD Code: E86.0 Status: Acute Assessment and Plan Mr. Scott is a 71 year-old male who presented to the ER on 10/08/2016 from [facility] for evaluation of abnormal labs obtained at the facility: Worsening renal function, increased white count. The patient has been having functional/cognitive decline following back surgery performed in June 12, 2017. Diarrhea- lives at SNF - concern for C. Diff - check for c. diff neg - consider CT abdomen/pelvis if testing negative and symptoms persist - No abd pain Dementia with aggressive behaviors since June 12, 2016 ; now with accompanying functional decline - check CT of head for organic causes - check EEG to r/o seizure activity Leukocytosis - white blood count of 15.4 with neutrophilia did not improve much - CXR with no acute cardiopulmonary disease, however the patient is coughing yellow sputum, imaging might lag behind. Continue rocephin and azithro. leukocytosis improving. - patient with diarrhea - infectious gastroenteritis? - Repeat CBC in a.m. and follow results Anemia - hemoglobin 10.3, hct 30.3. - no prior labs for comparison - Monitor./ H/H stable Acute renal failure/prerenal azotemia likely secondary to dehydration. Kidney indices improving. - BUN 70, creatinine 2.21, and estimated GFR 30 on admission. Follow trend. - NS bolus given in ER - Start IVF - Recheck bmp in a.m. and follow results Hypomagnesemia - Magnesium level I.2 . Replaced. Monitor and replace as need. DVT prophylaxis - Heparin 5000 units q8h subq Code Status DNR signed by patient on chart dated 07/04/2015 also was confirmed DNR code status with healthcare surrogate Neela Rivera, sister on admission . Discussed Condition With patient, nurse Problem Qualifiers (1) Leukocytosis: Qualified Code: D72.829 - Leukocytosis, unspecified type (2) Acute renal failure: Qualified Code: N17.9 - Acute renal failure, unspecified acute renal failure type Pricila Garcia MD Oct 09, 2016 11:47
[2016-10-09] MEDS ORDERED: ACETAMINOPHEN 325 MG TAB PO PRN (13:30)
[2016-10-09] MEDS: AZITHROMYCIN INJ 500 MG in SODIUM CHLOR 0.9% 250 ML INJ 250 ML IV SCH (14:26)
[2016-10-09] MEDS: cefTRIAXone INJ 1,000 MG in SODIUM CHLORIDE 0.9% INJ 100 ML IV SCH (14:26)
[2016-10-09] MEDS ORDERED: LORazepam 2 MG/ML VIAL IV PUSH PRN (19:15)
[2016-10-09] MEDS: ATORVASTATIN 40 MG TAB PO SCH (20:49)
[2016-10-09] MEDS: risperiDONE 1 MG TAB PO SCH (20:49)
--- NOTE | 2016-10-09 22:41 | MG ---
cc: MARI CALIXTO M.D. Lab No: Date: 10/09/2016 Age: Sex: M Race: REQUESTING PHYSICIAN Dr. Rivera INTRODUCTION An EEG was obtained on this 71-year-old patient who is awake and asleep and being evaluated for depression and altered mental status. DESCRIPTION This EEG is showing a lot of low amplitude beta rhythms diffusely. There are some intermixed theta and rare delta rhythms. There is probable alpha activity intermixed bilaterally. Photic stimulation shows no distinct change. The patient seems awake and asleep. When awake there is much more obvious theta and beta rhythms diffusely. Photic stimulation was unremarkable. INTERPRETATION Very mildly abnormal EEG because of some mild background slowing suggestive of mild diffuse disturbance of cerebral function but no epileptiform features present. MD SARAI Preciado/KK /9:43 PM /10:37 PM
[2016-10-10] VITALS (8 sets, daily range): BP systolic 93–142; BP diastolic 46–69; PULSE 61–94; RESP 18–20; TEMP 97.4–97.9; O2SAT 95–100
[2016-10-10] MEDS: HEPARIN SODIUM - SQ 10,000 UNITS/ML VIAL SQ SCH ×3 (06:09→22:40)
[2016-10-10] MEDS: HALOPERIDOL LACTATE 5 MG/ML AMP IM PRN (06:50)
[2016-10-10] MEDS: NIACIN 500 MG EXTENDED RELEASE TAB PO SCH ×3 (08:55→18:00)
[2016-10-10] MEDS: SODIUM CHLOR 0.9% 1000 ML INJ 1,000 ML IV SCH ×2 (08:55→19:25)
[2016-10-10] MEDS: PANTOPRAZOLE SOD 20 MG DELAYED RELEASE TAB PO SCH (08:55)
[2016-10-10] MEDS: TAMSULOSIN HCL 0.4 MG CAP PO SCH ×2 (08:56→22:32)
[2016-10-10] MEDS: ASPIRIN 81 MG CHEW TAB CHEW SCH (08:56)
[2016-10-10] MEDS: LISINOPRIL 10 MG TAB PO SCH (08:57)
[2016-10-10] MEDS: SODIUM CHLORIDE 0.9% FLUSH 10 ML FLUSH IV FLUSH SCH ×2 (08:57→21:00)
[2016-10-10] MEDS: METOPROLOL TARTRATE 25 MG TAB PO SCH ×2 (08:57→22:32)
[2016-10-10] MEDS: ESCITALOPRAM OXALATE 10 MG TAB PO SCH (08:57)
[2016-10-10] MEDS: risperiDONE 0.5 MG TAB PO SCH (08:59)
[2016-10-10] MEDS: cefTRIAXone INJ 1,000 MG in SODIUM CHLORIDE 0.9% INJ 100 ML IV SCH (13:52)
--- NOTE | 2016-10-10 14:53 | HHI.PR ---
Subjective Remarks Patient in bed, he is noted more agitated especially in the morning and at night. Patient says he is aware. Says he is still sob, however feels improved since yesterday. No fevers or chills./ Still with cough, improved since yesterday. Feels weak. Chest pain when he is coughing. No fever or chills overnight. Objective Vitals Vital Signs Date Time Temp Pulse Resp B/P Pulse Ox O2 Delivery O2 Flow Rate FiO2 10/10/16 12:02 97.4 61 20 105/52 98 10/10/16 08:28 97.4 89 18 122/58 95 10/10/16 08:00 89 10/10/16 05:27 97.7 68 20 104/54 100 10/10/16 05:23 Nasal Cannula 2.00 10/10/16 04:21 61 10/10/16 01:15 97.4 85 20 93/46 95 10/09/16 19:52 98.2 98 20 90/53 97 10/09/16 17:25 97.6 86 16 98/52 94 I/O 10/09/16 10/09/16 10/09/16 10/10/16 10/10/16 10/10/16 07:00 15:00 23:00 07:00 15:00 23:00 Intake Total 240 ml Output Total 280 ml Balance 240 ml -280 ml Intake Oral 240 ml Output Urine Total 280 ml # Voids 1 1 # Bowel Movements 1 1 Result Diagram: 10/09/16 0624 10/09/16 0624 Imaging Last Impressions Chest X-Ray 10/08/16 1821 Signed Impressions: Service Date/Time: Saturday, October 08, 2016 18:54 - CONCLUSION: No acute cardiopulmonary disease demonstrated. Fred Shanks MD Head CT 10/08/16 0000 Signed Impressions: Service Date/Time: Sunday, October 09, 2016 00:46 - CONCLUSION: Normal examination except fluid in both maxillary sinuses. Chuckie Pinedo MD Objective Remarks GENERAL: This is a pale, cachectic elderly male patient, who appears tired. SKIN: No rashes, ecchymoses or lesions. Cool and dry. HEAD: Atraumatic. Normocephalic. Temporal wasting noted. EYES: No scleral icterus. No injection or drainage. ENT: Nose without bleeding, purulent drainage. NECK: Trachea midline. No JVD or lymphadenopathy. CARDIOVASCULAR: Regular rate and rhythm without murmurs, gallops, or rubs. RESPIRATORY: Decreased breath sounds. + Cough. No wheezes, rales, or rhonchi. GASTROINTESTINAL: Abdomen soft, non-tender, nondistended. No guarding. MUSCULOSKELETAL: Extremities without clubbing, cyanosis, or edema. No calf tenderness. NEUROLOGICAL: Alert and oriented, appears tired. Answers questions appropriately to the best of his cognitive ability. A/P Problem List: (1) Diarrhea ICD Code: R19.7 Status: Acute (2) Dementia with aggressive behavior ICD Code: F03.91 Status: Acute (3) Declining functional status ICD Code: R53.81 Status: Acute (4) Leukocytosis ICD Code: D72.829 Status: Acute (5) Hypomagnesemia ICD Code: E83.42 Status: Acute (6) Acute renal failure ICD Code: N17.9 Status: Acute (7) Dehydration ICD Code: E86.0 Status: Acute Assessment and Plan Mr. Scott is a 71 year-old male who presented to the ER on 10/08/2016 from [facility] for evaluation of abnormal labs obtained at the facility: Worsening renal function, increased white count. The patient has been having functional/cognitive decline following back surgery performed in June 12, 2017. Diarrhea- lives at SNF - concern for C. Diff - check for c. diff neg - consider CT abdomen/pelvis if testing negative and symptoms persist - No abd pain Dementia with aggressive behaviors since June 12, 2016 ; now with accompanying functional decline - check CT of head for organic causes - check EEG to r/o seizure activity - Will consult psych Leukocytosis - white blood count of 15.4 with neutrophilia on admission poss PNA, patient with cough and sputum production, started abx and is improving - CXR with no acute cardiopulmonary disease, however the patient is coughing yellow sputum, imaging might lag behind. Continue rocephin and azithro. leukocytosis improving. - patient with diarrhea on admission, resolved. - infectious gastroenteritis? - Repeat CBC in a.m. and follow results Anemia - hemoglobin 10.3, hct 30.3. - no prior labs for comparison - Monitor./ H/H stable Acute renal failure/prerenal azotemia likely secondary to dehydration. Kidney indices improving. - BUN 70, creatinine 2.21, and estimated GFR 30 on admission. Follow trend. - NS bolus given in ER - Start IVF - Recheck bmp in a.m. and follow results Hypomagnesemia - Magnesium level I.2 . Replaced. Monitor and replace as need. DVT prophylaxis - Heparin 5000 units q8h subq Code Status DNR signed by patient on chart dated 07/04/2015 also was confirmed DNR code status with healthcare surrogate Neela Rivera, sister on admission Discussed Condition With patient, nurse Problem Qualifiers (1) Leukocytosis: Qualified Code: D72.829 - Leukocytosis, unspecified type (2) Acute renal failure: Qualified Code: N17.9 - Acute renal failure, unspecified acute renal failure type Pricila Garcia MD Oct 10, 2016 14:53
[2016-10-10] MEDS: AZITHROMYCIN INJ 500 MG in SODIUM CHLOR 0.9% 250 ML INJ 250 ML IV SCH (14:57)
[2016-10-10] MEDS: risperiDONE 1 MG TAB PO SCH (22:32)
[2016-10-10] MEDS: ATORVASTATIN 40 MG TAB PO SCH (22:32)
[2016-10-11] VITALS (7 sets, daily range): BP systolic 115–147; BP diastolic 56–68; PULSE 58–93; RESP 16–20; TEMP 97.3–98; O2SAT 94–99
[2016-10-11] MEDS: HEPARIN SODIUM - SQ 10,000 UNITS/ML VIAL SQ SCH ×3 (06:05→21:15)
[2016-10-11] MEDS: SODIUM CHLOR 0.9% 1000 ML INJ 1,000 ML IV SCH ×3 (07:20→13:50)
[2016-10-11] MEDS: LISINOPRIL 10 MG TAB PO SCH (09:00)
[2016-10-11] MEDS: SODIUM CHLORIDE 0.9% FLUSH 10 ML FLUSH IV FLUSH SCH ×2 (09:00→21:15)
[2016-10-11] MEDS: ASPIRIN 81 MG CHEW TAB CHEW SCH (11:36)
[2016-10-11] MEDS: METOPROLOL TARTRATE 25 MG TAB PO SCH ×2 (11:36→21:14)
[2016-10-11] MEDS: ESCITALOPRAM OXALATE 10 MG TAB PO SCH (11:36)
[2016-10-11] MEDS: TAMSULOSIN HCL 0.4 MG CAP PO SCH ×2 (11:36→21:14)
[2016-10-11] MEDS: PANTOPRAZOLE SOD 20 MG DELAYED RELEASE TAB PO SCH (11:37)
[2016-10-11] MEDS: risperiDONE 0.5 MG TAB PO SCH (11:37)
[2016-10-11] MEDS: NIACIN 500 MG EXTENDED RELEASE TAB PO SCH ×3 (11:37→17:39)
[2016-10-11] MEDS: AZITHROMYCIN INJ 500 MG in SODIUM CHLOR 0.9% 250 ML INJ 250 ML IV SCH (13:00)
[2016-10-11] MEDS: cefTRIAXone INJ 1,000 MG in SODIUM CHLORIDE 0.9% INJ 100 ML IV SCH (13:32)
[2016-10-11 13:49] LABS: BASOPHIL # 0.1 TH/MM3 (0-0.2); BASOPHIL % 0.6 % (0.0-2.0); EOSINOPHIL # 0.2 TH/MM3 (0-0.4); HEMATOCRIT 35.2 % (39.0-51.0); HEMO FLAGS DIFF FINAL; MEAN CELL VOLUME 87.6 FL (80.0-100.0); MEAN CORPUSCULAR HGB CONC 34.3 % (32.0-36.0); MONO % 5.6 % (0.0-8.0); NEUT % 83.8 % (16.0-70.0); PLATELET COUNT 212 TH/MM3 (150-450); RED BLOOD COUNT 4.01 MIL/MM3 (4.50-5.90); RED CELL DISTRIBUTION WIDTH 14.5 % (11.6-17.2); WHITE BLOOD COUNT 11.9 TH/MM3 (4.0-11.0)
[2016-10-11 14:23] LABS: ALKALINE PHOSPHATASE 74 U/L (45-117); ALT (GPT) 24 U/L (12-78); ANION GAP 9 MEQ/L (5-15); AST (GOT) 28 U/L (15-37); BICARBONATE 21.7 MEQ/L (21.0-32.0); BLOOD UREA NITROGEN 14 MG/DL (7-18); CHLORIDE 111 MEQ/L (98-107); GLOMERULAR FILTRATION RATE 82 ML/MIN (>89); SODIUM (NA) 142 MEQ/L (136-145); TOTAL BILIRUBIN ADULT 0.3 MG/DL (0.2-1.0)
[2016-10-11 14:24] LABS: POTASSIUM 4.7 MEQ/L (3.5-5.1)
--- NOTE | 2016-10-11 14:33 | PD.CONS ---
Provisional Diagnosis Admission Date Oct 08, 2016 at 19:56 [place]. Delirium due to underlying medical condition, dementia with behavioral disturbances History of Present Illness Service Psychiatry Consult Requested By Primary Care Physician Jignesh Alba MD HPI The patient is a 71 year-old man, history of dementia, who presented to the ER on 10/08/2016 from [facility] for evaluation of abnormal labs obtained at the facility: Worsening renal function, increased white count. The patient has been having functional/cognitive decline following back surgery performed in June 12, 2017. Patient was hospitalized due to Diarrhea, concern for C. Diff. increased agitation and aggressive behavior, CT of brain was done to rule out organic causes of cognitive impairment, no abnormalities were found. QTC is 396, EEG also performed without any and normality. Patient also presented Leukocytosis, initially 15.4 now 11.9 CXR with no acute cardiopulmonary disease, however the patient is coughing yellow sputum, imaging might lag behind. Anemia, hemoglobin 10.3, hct 30.3. Acute renal failure/prerenal azotemia, likely secondary to dehydration. Kidney indices: BUN 70, creatinine 2.21, and estimated GFR 30 on admission. Patient also to for psychiatry for behavioral dysregulation. Patient onset of the evaluation is found deeply is sleeping, most probably sedated due to medications. He is non-cooperative, not able to respond and provide any meaningful information for the psychiatric assessment at this moment. Will come later and follow-up. Review of Systems ROS Limitations: Unresponsive, Uncooperative Past Family Social History Coded Allergies: No Known Allergies (Unverified , 04/29/15) Active Scripts Digoxin 0.125 mg 0.125 Mg Tab0.125 Mg PO DAILY #90 TAB Ref 0 Prov:Edgard Sharma MD 05/02/15 Metformin 1,000 Mg Tab1,000 Mg PO BID #180 TAB Ref 0 Prov:Edgard Sharma MD 05/02/15 Atorvastatin 40 mg 40 Mg Tab1 Tab PO HS #90 TAB Ref 0 Prov:Edgard Sharma MD 04/12/15 Spironolactone 25 Mg Tab25 Mg PO DAILY #90 TAB Ref 0 Prov:Edgard Sharma MD 04/12/15 Atenolol 25 Mg Tab25 Mg PO DAILY #90 TAB Ref 0 Prov:Edgard Sharma MD 04/12/15 Lisinopril 10 mg 10 Mg Tab1 Tab PO DAILY #90 TAB Ref 0 Prov:Edgard Sharma MD 03/25/15 Tamsulosin Hcl (Flomax)0.4 Mg Cap0.4 Mg PO BID #180 CAP Ref 0 Prov:Edgard Sharma MD 02/07/15 Glimepiride 1 Mg Tab1 Mg PO DAILYAC #90 TAB Ref 0 Prov:Edgard Sharma MD 12/29/14 Omeprazole 20 mg 20 Mg Tab1 Tab PO DAILY #30 TAB Ref 1 Prov:Chela Mattson MD 09/10/14 Meclizine HCl (Meclizine Hcl)25 Mg Tab25 Mg PO BID PRN (DIZZINESS) #90 TAB Ref 3 Prov:Gwen Ortiz MD R3 09/10/14 Fluticasone Propionate (Flonase)0.05 % Naspr1 Spr NA DAILY 30 Days Ref 3 1 SPRAY EACH NOSTRIL Prov:Gwen Ortiz MD R3 07/28/14 Niacinamide (Niacin)500 Mg [id number] Mg PO HS 30 Days Ref 3 Prov:Gwen Ortiz MD R3 07/28/14 Theophylline (Theophylline Er)200 Mg [id number] Mg PO DAILY 30 Days Ref 3 Prov:Gwen Ortiz MD R3 07/28/14 Reported Medications Albuterol 18 GM Inh (Ventolin Hfa 18 GM Inh)90 Mcg/Act Aer2 Puff INH Q6H PRN ( SHORTNESS OF BREATH) #1 INHALER Ref 0 10/08/16 Tamsulosin 0.4 Mg Cap0.4 Mg PO BID #30 CAP Ref 0 10/08/16 Risperidone (Risperdal)1 Mg Tab1 Mg PO HS #30 TAB Ref 0 10/08/16 Risperidone (Risperdal)0.5 Mg Tab0.5 Mg PO DAILY #30 TAB Ref 0 10/08/16 Omeprazole (Prilosec)20 Mg Cap20 Mg PO DAILY #30 CAP Ref 0 10/08/16 Niacin 500 Mg [id number] Mg PO TID #60 TAB Ref 0 10/08/16 Naproxen 250 Mg Kij708 Mg PO BID #60 TAB Ref 0 10/08/16 Metoprolol Tartrate 25 Mg Tab25 Mg PO BID #60 TAB Ref 0 10/08/16 Metformin 1,000 Mg Tab1,000 Mg PO BIDPC #60 TAB Ref 0 With meals 10/08/16 Meclizine 25 Mg Tab25 Mg PO DIRECTED PRN (VERTIGO) Ref 0 10/08/16 Lisinopril 10 Mg Tab10 Mg PO DAILY #30 TAB Ref 0 10/08/16 Escitalopram (Lexapro)10 Mg Tab10 Mg PO DAILY #30 TAB Ref 0 10/08/16 Glimepiride 1 Mg Tab1 Mg PO DAILY #30 TAB Ref 0 Take with breakfast or first main meal 10/08/16 Fluticasone Nasal [place] (Flonase Nasal [place])50 Mcg/Act Spray50 Mcg EACH NARE BID #1 BOTTLE Ref 0 10/08/16 Atorvastatin 40 Mg Tab40 Mg PO HS #30 TAB Ref 0 10/08/16 Lorazepam (Ativan)0.5 Mg Tab0.5 Mg PO Q6H PRN (ANXIETY AND/OR AGITATION) Ref 0 10/08/16 Aspirin 81 Mg Chew81 Mg CHEW DAILY Ref 0 10/08/16 Spironolactone (Aldactone)25 Mg Tab25 Mg PO DAILY #30 TAB Ref 0 10/08/16 Niacin (Slo-Niacin)500 Mg [id number] Mg PO DAILY 12/01/14 Multiple Vitamins W/ Minerals (Senior Multivitamin Plus)Unknown Strength TabUnknown Dose 12/01/14 Cyanocobalamin (B-12)500 Mcg [id number] Mcg PO DAILY 12/01/14 [[facility]] Unknown Strength No Conflict CheckUnknown Dose 12/01/14 Aspirin (Aspir-81)81 Mg Tab81 Mg PO DAILY 12/01/14 Current Medications Medications (Trade) Dose Ordered Sig/Shanita Route Start Time Stop Time Status Last Admin (NS Flush) 2 ml UNSCH PRN IV FLUSH 10/08/16 20:30 (NS Flush) 2 ml BID IV FLUSH 10/08/16 21:00 10/09/16 20:49 (Narcan Inj) 0.4 mg UNSCH PRN IV 10/08/16 20:30 (Aspirin Chew) 81 mg DAILY CHEW 10/09/16 09:00 10/11/16 11:36 (Lipitor) 40 mg HS PO 10/09/16 21:00 10/10/16 22:32 (Lexapro) 10 mg DAILY PO 10/09/16 09:00 10/11/16 11:36 (Prinivil) 10 mg DAILY PO 10/09/16 09:00 10/11/16 09:00 (Lopressor) 25 mg BID PO 10/09/16 09:00 10/11/16 11:36 (risperDAL) 0.5 mg DAILY PO 10/09/16 09:00 10/11/16 11:37 (risperDAL) 1 mg HS PO 10/09/16 21:00 10/10/16 22:32 (Flomax) 0.4 mg BID PO 10/09/16 09:00 10/11/16 11:36 (Slo-Niacin) 500 mg TID PO 10/09/16 09:00 10/11/16 13:35 (Protonix) 20 mg DAILY PO 10/09/16 09:00 10/11/16 11:37 Heparin Sodium (Porcine) 5000 units 5,000 units Q8HR SQ 10/08/16 23:30 10/11/16 13:49 Ceftriaxone Sodium 1000 mg/ Sodium Chloride 100 ml @ 200 mls/hr Q24H IV 10/09/16 13:00 10/11/16 13:32 (Zithromax Inj/ NS 250 ml Inj) 250 ml @ 250 mls/hr Q24H IV 10/09/16 13:00 10/11/16 13:00 (Tylenol) 650 mg Q6HR PRN PO 10/09/16 13:30 10/09/16 14:25 (Haldol Inj) 2 mg Q6HR PRN IM 10/09/16 19:15 10/10/16 06:50 Lorazepam 1 mg 1 mg Q6H PRN IV PUSH 10/09/16 19:15 (NS 1000 ml Inj) 1,000 ml @ 84 mls/hr [id number] IV 10/10/16 07:30 10/11/16 13:50 Physical Exam Vital Signs Vital Signs Date Time Temp Pulse Resp B/P Pulse Ox O2 Delivery O2 Flow Rate FiO2 10/11/16 12:00 97.5 93 18 121/56 94 10/10/16 05:23 Nasal Cannula 2.00 I/O 10/10/16 10/10/16 10/11/16 08:00 16:00 00:00 Intake Total 1072 ml Output Total 280 ml Balance -280 ml 1072 ml Mental Status Examination Patient sedated, uncooperative Appearance skinny elderly man, hospital pajamas, restrained in 2 points, non- cooperative, sedated Assessment & Plan Problem List: (1) Dementia with aggressive behavior Assessment & Plan: The moment of this evaluation the patient is sedated, non- cooperative, unable to participate in the psychotic assessment. Documentation was reviewed. Continue Risperdal 1 mg twice a day to control behavior. Also Lexapro 20 mg for mood. For breakthrough agitation and aggressive behavior can give 1 mg of Haldol IV/IM stat. My impression is that behavioral and mood dysregulation might be related with delirium secondary to decompensation of underlying medical conditions. I will follow-up. ICD Code: F03.91 Assessment & Plan Estimated LOS: days Jeff Cueto MD Oct 11, 2016 14:32
--- NOTE | 2016-10-11 14:40 | HHI.PR ---
Subjective Remarks Seen earlier today. In bed, less agitated. Says he did not eat yet breakfast. Still coughing but not so much . Still with some chest congestion. No fevers or chills. No n/v/d/c. Objective Vitals Vital Signs Date Time Temp Pulse Resp B/P Pulse Ox O2 Delivery O2 Flow Rate FiO2 10/11/16 12:00 97.5 93 18 121/56 94 10/11/16 08:00 97.4 64 16 147/66 94 10/11/16 04:00 97.8 58 16 122/61 99 10/11/16 00:00 98.0 74 20 115/68 97 10/10/16 20:00 97.9 94 20 142/69 95 10/10/16 16:30 97.7 72 18 125/57 98 I/O 10/10/16 10/10/16 10/10/16 10/11/16 10/11/16 10/11/16 07:00 15:00 23:00 07:00 15:00 23:00 Intake Total 1072 ml 0 ml Output Total 280 ml Balance -280 ml 1072 ml 0 ml Intake Oral 400 ml 0 ml IV Total 672 ml Output Urine Total 280 ml # Voids 3 1 # Bowel Movements 1 1 Result Diagram: 10/11/16 1305 10/11/16 1305 Imaging Last Impressions Chest X-Ray 10/08/16 1821 Signed Impressions: Service Date/Time: Saturday, October 08, 2016 18:54 - CONCLUSION: No acute cardiopulmonary disease demonstrated. Fred Shanks MD Head CT 10/08/16 0000 Signed Impressions: Service Date/Time: Sunday, October 09, 2016 00:46 - CONCLUSION: Normal examination except fluid in both maxillary sinuses. Chuckie Pinedo MD Objective Remarks GENERAL: This is a pale, cachectic elderly male patient, who appears tired. SKIN: No rashes, ecchymoses or lesions. Cool and dry. HEAD: Atraumatic. Normocephalic. Temporal wasting noted. EYES: No scleral icterus. No injection or drainage. ENT: Nose without bleeding, purulent drainage. NECK: Trachea midline. No JVD or lymphadenopathy. CARDIOVASCULAR: Regular rate and rhythm without murmurs, gallops, or rubs. RESPIRATORY: Decreased breath sounds. + Cough. No wheezes, rales, or rhonchi. GASTROINTESTINAL: Abdomen soft, non-tender, nondistended. No guarding. MUSCULOSKELETAL: Extremities without clubbing, cyanosis, or edema. No calf tenderness. NEUROLOGICAL: Alert and oriented, appears tired. Answers questions appropriately to the best of his cognitive ability. A/P Problem List: (1) Diarrhea ICD Code: R19.7 Status: Acute (2) Dementia with aggressive behavior ICD Code: F03.91 Status: Acute (3) Declining functional status ICD Code: R53.81 Status: Acute (4) Leukocytosis ICD Code: D72.829 Status: Acute (5) Hypomagnesemia ICD Code: E83.42 Status: Acute (6) Acute renal failure ICD Code: N17.9 Status: Acute (7) Dehydration ICD Code: E86.0 Status: Acute Assessment and Plan Mr. Scott is a 71 year-old male who presented to the ER on 10/08/2016 from [facility] for evaluation of abnormal labs obtained at the facility: Worsening renal function, increased white count. The patient has been having functional/cognitive decline following back surgery performed in June 12, 2017. Diarrhea. Resolved. - lives at SNF - concern for C. Diff - check for c. diff neg - consider CT abdomen/pelvis if testing negative and symptoms persist - No abd pain Dementia with aggressive behaviors since June 12, 2016 ; now with accompanying functional decline - check CT of head for organic causes - check EEG to r/o seizure activity - Will consult psych, appreciate recommendations. Patient is noted agitated on / off. Leukocytosis - white blood count of 15.4 with neutrophilia on admission poss PNA, patient with cough and sputum production, started abx and is improving - CXR with no acute cardiopulmonary disease, however the patient is coughing yellow sputum, imaging might lag behind. Continue rocephin and azithro. leukocytosis improving. - patient with diarrhea on admission, resolved. - infectious gastroenteritis? - Repeat CBC in a.m. and follow results Anemia - hemoglobin 10.3, hct 30.3. - no prior labs for comparison - Monitor./ H/H stable Acute renal failure/prerenal azotemia likely secondary to dehydration. Kidney indices improving. - BUN 70, creatinine 2.21, and estimated GFR 30 on admission. Follow trend. - NS bolus given in ER - Start IVF - Recheck bmp in a.m. and follow results Hypomagnesemia - Magnesium level I.2 . Replaced. Monitor and replace as need. DVT prophylaxis - Heparin 5000 units q8h subq Code Status DNR signed by patient on chart dated 07/04/2015 also was confirmed DNR code status with healthcare surrogate Neela Rivera, sister on admission Discussed Condition With patient, nurse Problem Qualifiers (1) Leukocytosis: Qualified Code: D72.829 - Leukocytosis, unspecified type (2) Acute renal failure: Qualified Code: N17.9 - Acute renal failure, unspecified acute renal failure type Pricila Garcia MD Oct 11, 2016 14:40
[2016-10-11] MEDS: risperiDONE 1 MG TAB PO SCH (21:14)
[2016-10-11] MEDS: ATORVASTATIN 40 MG TAB PO SCH (21:14)
[2016-10-12] VITALS (8 sets, daily range): BP systolic 104–141; BP diastolic 54–71; PULSE 56–82; RESP 16–20; TEMP 97.1–98.1; O2SAT 95–98
--- NOTE | 2016-10-12 01:18 | HHI.PR ---
Addendum to Inpatient Note Addendum Reason: Additional Documentation Additional Information Call from patient's RN: Mr. Scott had an asymptomatic 9 beat run of V. tach. Vital signs were stable and the patient was sleeping when the run occurred. We will check CBC, BMP, magnesium, and troponin I and follow results. . Jaz Rivera Oct 12, 2016 01:18
[2016-10-12 02:19] LABS: AUTOMATED NEUTROPHIL # 8.3 TH/MM3 (1.8-7.7); BASOPHIL % 0.3 % (0.0-2.0); EOSINOPHIL # 0.2 TH/MM3 (0-0.4); EOSINOPHIL % 1.9 % (0.0-4.0); HEMATOCRIT 30.7 % (39.0-51.0); HEMO FLAGS DIFF FINAL; LYMPH % 9.3 % (9.0-44.0); LYMPHOCYTE # 0.9 TH/MM3 (1.0-4.8); MEAN CELL VOLUME 88.1 FL (80.0-100.0); MEAN CORPUSCULAR HEMOGLOBIN 30.9 PG (27.0-34.0); MEAN CORPUSCULAR HGB CONC 35.1 % (32.0-36.0); MONO % 6.5 % (0.0-8.0); PLATELET COUNT 169 TH/MM3 (150-450); RED BLOOD COUNT 3.48 MIL/MM3 (4.50-5.90); RED CELL DISTRIBUTION WIDTH 14.8 % (11.6-17.2); WHITE BLOOD COUNT 10.1 TH/MM3 (4.0-11.0)
[2016-10-12 02:51] LABS: BICARBONATE 24.1 MEQ/L (21.0-32.0); POTASSIUM 4.1 MEQ/L (3.5-5.1)
[2016-10-12] MEDS: MAGNESIUM SULFATE 1 GM PREMIX 100 ML IV SCH ×3 (03:44→05:59)
[2016-10-12] MEDS: HEPARIN SODIUM - SQ 10,000 UNITS/ML VIAL SQ SCH ×3 (04:57→21:21)
[2016-10-12] MEDS: SODIUM CHLORIDE 0.9% FLUSH 10 ML FLUSH IV FLUSH SCH ×2 (09:00→21:00)
[2016-10-12] MEDS: ASPIRIN 81 MG CHEW TAB CHEW SCH (10:24)
[2016-10-12] MEDS: ESCITALOPRAM OXALATE 10 MG TAB PO SCH (10:25)
[2016-10-12] MEDS: TAMSULOSIN HCL 0.4 MG CAP PO SCH ×2 (10:25→21:20)
[2016-10-12] MEDS: METOPROLOL TARTRATE 25 MG TAB PO SCH ×2 (10:25→21:21)
[2016-10-12] MEDS: PANTOPRAZOLE SOD 20 MG DELAYED RELEASE TAB PO SCH (10:26)
[2016-10-12] MEDS: risperiDONE 0.5 MG TAB PO SCH (10:26)
[2016-10-12] MEDS: LISINOPRIL 10 MG TAB PO SCH (10:26)
[2016-10-12] MEDS: NIACIN 500 MG EXTENDED RELEASE TAB PO SCH ×3 (10:26→16:57)
--- NOTE | 2016-10-12 12:44 | HHI.PR ---
Subjective Remarks Patient in bed, he just had a bowel movement and is getting clean. His sitting restraints, however appears much better at this time unless agitated that. Says he is still short of breath is coughing not much phlegm coming out. Denies any chest pain or shortness of breath. There is no fever or chills. He was skateboarding the nurses with his legs. I discussed with Dr. Guallpa from psychiatry for reevaluation. Magnesium noted low we'll replace monitor will change fluids to swell Objective Vitals Vital Signs Date Time Temp Pulse Resp B/P Pulse Ox O2 Delivery O2 Flow Rate FiO2 10/12/16 12:33 97.5 56 18 104/54 97 10/12/16 08:34 97 10/12/16 08:02 98.1 82 18 137/65 95 10/12/16 04:00 97.1 82 20 141/71 96 10/12/16 00:00 97.7 72 16 138/63 97 10/11/16 20:00 97.4 74 16 115/56 99 10/11/16 18:00 83 10/11/16 16:00 97.3 76 18 133/62 95 I/O 10/11/16 10/11/16 10/11/16 10/12/16 10/12/16 10/12/16 07:00 15:00 23:00 07:00 15:00 23:00 Intake Total 0 ml 600 ml 2120 ml 0 ml Output Total 600 ml 350 ml 500 ml Balance 0 ml 0 ml 1770 ml -500 ml Intake Oral 0 ml 600 ml 240 ml 0 ml IV Total 1880 ml Output Urine Total 600 ml 350 ml 500 ml # Voids 1 # Bowel Movements 1 1 2 1 Result Diagram: 10/12/16 0139 10/12/16 0139 Imaging Last Impressions Chest X-Ray 10/08/16 1821 Signed Impressions: Service Date/Time: Saturday, October 08, 2016 18:54 - CONCLUSION: No acute cardiopulmonary disease demonstrated. Fred Shanks MD Head CT 10/08/16 0000 Signed Impressions: Service Date/Time: Sunday, October 09, 2016 00:46 - CONCLUSION: Normal examination except fluid in both maxillary sinuses. Chuckie Pinedo MD Objective Remarks GENERAL: This is a pale, cachectic elderly male patient, who appears tired. SKIN: No rashes, ecchymoses or lesions. Cool and dry. HEAD: Atraumatic. Normocephalic. Temporal wasting noted. EYES: No scleral icterus. No injection or drainage. ENT: Nose without bleeding, purulent drainage. NECK: Trachea midline. No JVD or lymphadenopathy. CARDIOVASCULAR: Regular rate and rhythm without murmurs, gallops, or rubs. RESPIRATORY: Decreased breath sounds. + Cough. No wheezes, rales, or rhonchi. GASTROINTESTINAL: Abdomen soft, non-tender, nondistended. No guarding. MUSCULOSKELETAL: Extremities without clubbing, cyanosis, or edema. No calf tenderness. NEUROLOGICAL: Alert and oriented, appears tired. Answers questions appropriately to the best of his cognitive ability. A/P Problem List: (1) Diarrhea ICD Code: R19.7 Status: Acute (2) Dementia with aggressive behavior ICD Code: F03.91 Status: Acute (3) Declining functional status ICD Code: R53.81 Status: Acute (4) Leukocytosis ICD Code: D72.829 Status: Acute (5) Hypomagnesemia ICD Code: E83.42 Status: Acute (6) Acute renal failure ICD Code: N17.9 Status: Acute (7) Dehydration ICD Code: E86.0 Status: Acute Assessment and Plan Mr. Scott is a 71 year-old male who presented to the ER on 10/08/2016 from [facility] for evaluation of abnormal labs obtained at the facility: Worsening renal function, increased white count. The patient has been having functional/cognitive decline following back surgery performed in June 12, 2017. Diarrhea. Resolved. - lives at SNF - concern for C. Diff - check for c. diff neg - consider CT abdomen/pelvis if testing negative and symptoms persist - No abd pain Dementia with aggressive behaviors since June 12, 2016 ; now with accompanying functional decline - check CT of head for organic causes - check EEG to r/o seizure activity - Consult psych, appreciate recommendations. Patient is noted agitated on /off. -Reconsult Dr Cueto ( spoke with Dr Cueto he will reevaluate patient as he is noted very aggressive especially at night). Leukocytosis - white blood count of 15.4 with neutrophilia on admission poss PNA, patient with cough and sputum production, started abx and is improving - CXR with no acute cardiopulmonary disease, however the patient is coughing yellow sputum, imaging might lag behind. Continue rocephin and azithro. leukocytosis improving. - patient with diarrhea on admission, resolved. - Repeat CBC in a.m. and follow results Anemia - hemoglobin 10.3, hct 30.3. - no prior labs for comparison - Monitor./ H/H stable Acute renal failure/prerenal azotemia likely secondary to dehydration. Kidney indices improving. - BUN 70, creatinine 2.21, and estimated GFR 30 on admission. Follow trend. - NS bolus given in ER - Start IVF - Recheck bmp in a.m. and follow results Hypomagnesemia> Replaced with PO. Received also by IV mag as Mag severely low. Continue mag po PO daily 400 mg. Continue to monitor and replace. Hypernatremia, hyperchloremia,: change fluids to half normal saline at 83 cc/ hr. Monitor. DVT prophylaxis - Heparin 5000 units q8h subq Code Status DNR signed by patient on chart dated 07/04/2015 also was confirmed DNR code status with healthcare surrogate Neela Rivera, sister on admission Discussed Condition With patient, nurse, Dr Ferrera from psych Problem Qualifiers (1) Leukocytosis: Qualified Code: D72.829 - Leukocytosis, unspecified type (2) Acute renal failure: Qualified Code: N17.9 - Acute renal failure, unspecified acute renal failure type Pricila Garcia MD Oct 12, 2016 12:44
[2016-10-12] MEDS: cefTRIAXone INJ 1,000 MG in SODIUM CHLORIDE 0.9% INJ 100 ML IV SCH (13:57)
[2016-10-12] MEDS: AZITHROMYCIN INJ 500 MG in SODIUM CHLOR 0.9% 250 ML INJ 250 ML IV SCH (13:58)
[2016-10-12] MEDS ORDERED: MAGNESIUM OXIDE 400 MG TAB PO ONE (15:45)
[2016-10-12] MEDS ORDERED: MAGNESIUM SULFATE 1 GM PREMIX 100 ML IV ONE (16:00)
[2016-10-12] MEDS: SODIUM CHLOR 0.45% 1000 ML INJ 1,000 ML IV SCH (16:56)
[2016-10-12] MEDS: ATORVASTATIN 40 MG TAB PO SCH (21:20)
[2016-10-12] MEDS: risperiDONE 1 MG TAB PO SCH (21:20)
[2016-10-13] VITALS (8 sets, daily range): BP systolic 116–135; BP diastolic 55–75; PULSE 62–97; RESP 17–18; TEMP 97.4–97.9; O2SAT 96–98
[2016-10-13] MEDS: SODIUM CHLOR 0.45% 1000 ML INJ 1,000 ML IV SCH ×2 (03:27→16:21)
[2016-10-13] MEDS: HEPARIN SODIUM - SQ 10,000 UNITS/ML VIAL SQ SCH ×3 (05:31→22:00)
[2016-10-13 07:21] LABS: AUTOMATED NEUTROPHIL # 6.6 TH/MM3 (1.8-7.7); BASOPHIL % 0.3 % (0.0-2.0); EOSINOPHIL # 0.2 TH/MM3 (0-0.4); EOSINOPHIL % 2.7 % (0.0-4.0); HEMATOCRIT 29.8 % (39.0-51.0); HEMO FLAGS DIFF FINAL; LYMPH % 9.2 % (9.0-44.0); LYMPHOCYTE # 0.7 TH/MM3 (1.0-4.8); MEAN CELL VOLUME 87.7 FL (80.0-100.0); MEAN CORPUSCULAR HEMOGLOBIN 30.1 PG (27.0-34.0); MEAN CORPUSCULAR HGB CONC 34.2 % (32.0-36.0); MONO % 7.4 % (0.0-8.0); NEUT % 80.4 % (16.0-70.0); PLATELET COUNT 142 TH/MM3 (150-450); RED CELL DISTRIBUTION WIDTH 14.5 % (11.6-17.2); WHITE BLOOD COUNT 8.2 TH/MM3 (4.0-11.0)
--- NOTE | 2016-10-13 07:56 | HHI.DS ---
Discharge Summary Admission Date Oct 08, 2016 at 19:56 Discharge Date: Oct 18, 2016 Admitting Diagnosis Dehydration, hypomag, hypocalcemia, ARF (1) Hypocalcemia ICD Code: E83.51 Diagnosis: Principal (2) Wide-complex tachycardia ICD Code: I47.2 Diagnosis: Principal (3) Diarrhea ICD Code: R19.7 Diagnosis: Principal (4) Dementia with aggressive behavior ICD Code: F03.91 Diagnosis: Principal (5) Declining functional status ICD Code: R53.81 Diagnosis: Principal (6) Leukocytosis ICD Code: D72.829 Diagnosis: Principal (7) Hypomagnesemia ICD Code: E83.42 Diagnosis: Principal (8) Acute renal failure ICD Code: N17.9 Diagnosis: Principal (9) Dehydration ICD Code: E86.0 Diagnosis: Principal (10) COPD (chronic obstructive pulmonary disease) ICD Code: J44.9 Diagnosis: Secondary (11) Diabetes mellitus ICD Code: E11.9 Diagnosis: Secondary (12) Hyperlipidemia ICD Code: E78.5 Diagnosis: Secondary (13) Left inguinal hernia ICD Code: K40.90 Diagnosis: Secondary Procedures none Brief History - From Admission Mr. Scott is a 71 year-old male with a history of coronary artery disease status post quintuple cardiac bypass in 1996, CHF, type 2 diabetes mellitus, hypertension, hyperlipidemia, COPD, prostate cancer status post radiation treatment 2012, and chronic back pain related to degenerative disc disease who presented to the ER on 10/08/2016 from [facility] for evaluation of abnormal labs obtained at the facility: Worsening renal function, increased white count. The patient has been having functional decline following back surgery performed in June 12, 2017. The patient was reportedly initially hypotensive and improved with IV fluids per EMS. Leukocytosis is noted with white blood count of 15.4 with neutrophilia. The patient also has anemia with hemoglobin 10.3. Prerenal azotemia is present with BUN 70, creatinine 2.21, and estimated GFR 30. Hypomagnesemia noted with magnesium level I.2. The patient is quite lethargic and has some cognitive impairments. Much of history was taken from patient's sister Neela Rivera at bedside. Current functional status: Walks with help of a walker, able to feed self No nausea or vomiting, no fever Not eating or drinking well x 3 weeks Not sure if he's been having diarrhea in facility but had watery diarrhea here in ER No Daniels prior to ER visit BP has been low since Saturday Worsening dementia since back surgery June 12, 2017 - went home and fell - back to hospital ([facility] 06/26/16) Mid June he went to rehab and has been there since Symptoms per patient report: Denies cp, nausea, abdominal pain, Reports diarrhea for a few days No burning or pain with urination, no hematuria No black or red stool No syncope Had previously seen a physician at [facility] . CBC/BMP: 10/13/16 0639 10/12/16 0139 Significant Findings Laboratory Tests Test 10/11/16 10/12/16 10/13/16 13:05 01:39 06:39 White Blood Count 11.9 TH/MM3 (4.0-11.0) Red Blood Count 4.01 MIL/MM3 3.48 MIL/MM3 3.40 MIL/MM3 (4.50-5.90) (4.50-5.90) (4.50-5.90) Hemoglobin 12.0 GM/DL 10.8 GM/DL 10.2 GM/DL (13.0-17.0) (13.0-17.0) (13.0-17.0) Hematocrit 35.2 % 30.7 % 29.8 % (39.0-51.0) (39.0-51.0) (39.0-51.0) Mean Platelet Volume 6.8 FL 6.6 FL 6.5 FL (7.0-11.0) (7.0-11.0) (7.0-11.0) Neutrophils (%) (Auto) 83.8 % 82.0 % 80.4 % (16.0-70.0) (16.0-70.0) (16.0-70.0) Lymphocytes (%) (Auto) 8.0 % (9.0-44.0) Neutrophils # (Auto) 10.0 TH/MM3 8.3 TH/MM3 (1.8-7.7) (1.8-7.7) Chloride Level 111 MEQ/L 114 MEQ/L (98-107) (98-107) Estimat Glomerular Filtration 82 ML/MIN (>89) 87 ML/MIN (>89) Rate Random Glucose 108 MG/DL 108 MG/DL (74-106) (74-106) Total Protein 6.1 GM/DL (6.4-8.2) Albumin 2.6 GM/DL (3.4-5.0) Lymphocytes # (Auto) 0.9 TH/MM3 0.7 TH/MM3 (1.0-4.8) (1.0-4.8) Calcium Level 8.1 MG/DL (8.5-10.1) Magnesium Level 1.0 MG/DL (1.5-2.5) Platelet Count 142 TH/MM3 (150-450) Imaging Last Impressions Abdomen/Pelvis CT 10/14/16 0957 Signed Impressions: Service Date/Time: Friday, October 14, 2016 15:13 - CONCLUSION: 1. Evidence of bilateral inguinal hernia repair with asymmetric appearance with possible reherniation left side. There is a noncalcified opacity with in the left inguinal hernia orifice which is of uncertain significance. Induration within the hernia as well as a surgically placed plug could both have this appearance. Recommend correlation with surgical procedural note to see whether a left inguinal plug was deployed. 2. Solitary nonobstructing calcified stone lower pole right kidney. 3. Bilateral pleural effusions, small, and some compressive atelectasis or infiltrate in the right costophrenic angle. 4. Calcified left iliac artery aneurysm. 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 Jos Burr MD Chest X-Ray 10/08/16 1821 Signed Impressions: Service Date/Time: Saturday, October 08, 2016 18:54 - CONCLUSION: No acute cardiopulmonary disease demonstrated. Fred Shanks MD Head CT 10/08/16 0000 Signed Impressions: Service Date/Time: Sunday, October 09, 2016 00:46 - CONCLUSION: Normal examination except fluid in both maxillary sinuses. Chuckie Pinedo MD PE at Discharge GENERAL: This is a pale, cachectic elderly male patient, who appears tired. SKIN: No rashes, ecchymoses or lesions. Cool and dry. HEAD: Atraumatic. Normocephalic. Temporal wasting noted. EYES: No scleral icterus. No injection or drainage. ENT: Nose without bleeding, purulent drainage. NECK: Trachea midline. No JVD or lymphadenopathy. CARDIOVASCULAR: Regular rate and rhythm without murmurs, gallops, or rubs. RESPIRATORY: Decreased breath sounds. + Cough. No wheezes, rales, or rhonchi. GASTROINTESTINAL: Abdomen soft, non-tender, nondistended. No guarding. MUSCULOSKELETAL: Extremities without clubbing, cyanosis, or edema. No calf tenderness. NEUROLOGICAL: Alert and oriented, appears tired. Answers questions appropriately to the best of his cognitive ability. Hospital Course Mr. Scott is a 71 year-old male who presented to the ER on 10/08/2016 from [facility] for evaluation of abnormal labs obtained at the facility: Worsening renal function, increased white count. The patient has been having functional/cognitive decline following back surgery performed in June 12, 2017. Noted with 34 beats of Vtach on tele 10/15. Patient without any chest pain/sob. VS stable. Lytes were replaced. Will recheck labs. Will check EKG, trop and ask cardiology for evaluation and clearance for DC. Cardiology recommends 2D ECHO normal EF 60% Diarrhea. With diarrhea again overnight 10/13 - lives at SNF - concern for C. Diff - check for c. diff neg on admission was negative. Will recheck for c diff as patient is on abx . Start probiotics. - will check CT abdomen/pelvis as symptoms persist - will check CBC, BMP , mag and phos Dementia with aggressive behaviors since June 12, 2016 ; now with accompanying functional decline - check CT of head for organic causes - check EEG to r/o seizure activity - Consult psych, appreciate recommendations. Patient is noted agitated on /off. - Seen by Dr Cueto, psych , appreciate recommendations. Leukocytosis - white blood count of 15.4 with neutrophilia on admission poss PNA, patient with cough and sputum production, started abx and is improving - CXR with no acute cardiopulmonary disease, however the patient is coughing yellow sputum, imaging might lag behind. Continue rocephin and azithro. leukocytosis improving. - patient with diarrhea on admission, resolved. - Repeat CBC in a.m. and follow results Anemia - hemoglobin 10.3, hct 30.3. on admission - no prior labs for comparison - Monitor./ H/H stable Acute renal failure/prerenal azotemia likely secondary to dehydration. Kidney indices improving. - BUN 70, creatinine 2.21, and estimated GFR 30 on admission. Follow trend. - NS bolus given in ER - Start IVF - Recheck bmp in a.m. and follow results Hypomagnesemia> Replaced with PO. Received also by IV mag as Mag severely low. Continue mag po PO daily 400 mg. Continue to monitor and replace. Hypernatremia, hyperchloremia,: change fluids to half normal saline at 83 cc/ hr. Monitor. DVT prophylaxis - Heparin 5000 units q8h subq Code Status DNR signed by patient on chart dated 07/04/2015 also was confirmed DNR code status with healthcare surrogate Neela Rivera, sister on admission Discussed Condition With patient, nurse Discharge plan Plan to discharge back to rehabilitation/ long-term facility. Discussed with case management for discharge planning Patient is off restraints for > 24 hours. Noted with arrhythmia. Seen by cardiology Dr Malone. 2D echo done normal EF 50 % and mild LVH. Patient with wide complex tachycardia. I discussed with cardiology , cleared by Dr Malone cardiology for DC.Improved, cleared for DC to follow up as OP with PCP and consultants. Discharge Planning Cleared for DC, DC to SNF when arrangements done Pt Condition on Discharge: Stable Discharge Disposition: Discharge to SNF Discharge Time: > 30 minutes Discharge Instructions DIET: Follow Instructions for: Heart Healthy Diet Activities you can perform: Regular-No Restrictions Other Activity Instructions: Fall precautions Follow up Referrals: Cardiology - 2 Weeks with Peri Malone MD PCP Follow-up - 3-5 Days SNF/DETENTION/ with [facility] - 3-5 Days New Medications: Cefuroxime (Ceftin) 500 Mg Tab 500 MG PO BID Infection #8 Ref 0 TAB Magnesium (Magnesium) 400 Mg Tab 400 MG PO DAILY Nutritional Supplement #7 Ref 0 TAB Continued Medications: Albuterol 18 GM Inh (Ventolin Hfa 18 GM Inh) 90 Mcg/Act Aer 2 PUFF INH Q6H PRN SHORTNESS OF BREATH #1 Ref 0 INHALER Aspirin (Aspirin) 81 Mg Chew 81 MG CHEW DAILY Ref 0 TAB Atorvastatin (Atorvastatin) 40 Mg Tab 40 MG PO HS Cholesterol Management #30 Ref 0 TAB Cyanocobalamin (B-12) 500 Mcg Tab 500 MCG PO DAILY TAB Digoxin 0.125 mg (Digoxin 0.125 mg) 0.125 Mg Tab 0.125 MG PO DAILY #90 Ref 0 TAB Escitalopram (Lexapro) 10 Mg Tab 10 MG PO DAILY #30 Ref 0 TAB Fluticasone Propionate (Flonase) 0.05 % Naspr 1 SPR NA DAILY 1 SPRAY EACH NOSTRIL Days 30 Ref 3 SPRAY Glimepiride (Glimepiride) 1 Mg Tab 1 MG PO DAILY Take with breakfast or first main meal Blood Sugar Management #30 Ref 0 TAB Lisinopril (Lisinopril) 10 Mg Tab 10 MG PO DAILY #30 Ref 0 TAB Lorazepam (Ativan) 0.5 Mg Tab 0.5 MG PO Q6H PRN ANXIETY AND/OR AGITATION Ref 0 TAB Meclizine (Meclizine) 25 Mg Tab 25 MG PO DIRECTED PRN VERTIGO Ref 0 TAB Metformin (Metformin) 1,000 Mg Tab 1000 MG PO BIDPC With meals Blood Sugar Management #60 Ref 0 TAB Metoprolol Tartrate (Metoprolol Tartrate) 25 Mg Tab 25 MG PO BID #60 Ref 0 TAB Multiple Vitamins W/ Minerals (Senior Multivitamin Plus) Unknown Strength Tab Unknown Dose Niacinamide (Niacin) 500 Mg Tab 500 MG PO HS Days 30 Ref 3 TAB Omeprazole (Prilosec) 20 Mg Cap 20 MG PO DAILY #30 Ref 0 CAP Risperidone (Risperdal) 0.5 Mg Tab 0.5 MG PO DAILY #30 Ref 0 TAB Risperidone (Risperdal) 1 Mg Tab 1 MG PO HS #30 Ref 0 TAB Spironolactone (Aldactone) 25 Mg Tab 25 MG PO DAILY #30 Ref 0 TAB Tamsulosin (Tamsulosin) 0.4 Mg Cap 0.4 MG PO BID Manage Prostate Problems #30 Ref 0 CAP Theophylline (Theophylline Er) 200 Mg Tab 400 MG PO DAILY Days 30 Ref 3 TAB ([[facility] probiotics]) Unknown Strength Unknown Dose Discontinued Medications: Aspirin (Aspir-81) 81 Mg Tab 81 MG PO DAILY TAB Atenolol (Atenolol) 25 Mg Tab 25 MG PO DAILY #90 Ref 0 TAB Atorvastatin 40 mg (Atorvastatin 40 mg) 40 Mg Tab 1 TAB PO HS #90 Ref 0 TAB Fluticasone Nasal [place] (Flonase Nasal [place]) 50 Mcg/Act [place] 50 MCG EACH NARE BID Allergies #1 Ref 0 BOTTLE Glimepiride (Glimepiride) 1 Mg Tab 1 MG PO DAILYAC #90 Ref 0 TAB Lisinopril 10 mg (Lisinopril 10 mg) 10 Mg Tab 1 TAB PO DAILY #90 Ref 0 TAB Meclizine HCl (Meclizine Hcl) 25 Mg Tab 25 MG PO BID PRN DIZZINESS #90 Ref 3 TAB Metformin (Metformin) 1,000 Mg Tab 1000 MG PO BID #180 Ref 0 TAB Naproxen (Naproxen) 250 Mg Tab 250 MG PO BID #60 Ref 0 TAB Niacin (Slo-Niacin) 500 Mg Tab 500 MG PO DAILY TAB Niacin (Niacin) 500 Mg Tab 500 MG PO TID Cholesterol Management #60 Ref 0 TAB Omeprazole 20 mg (Omeprazole 20 mg) 20 Mg Tab 1 TAB PO DAILY #30 Ref 1 TAB Spironolactone (Spironolactone) 25 Mg Tab 25 MG PO DAILY #90 Ref 0 TAB Tamsulosin Hcl (Flomax) 0.4 Mg Cap 0.4 MG PO BID #180 Ref 0 CAP Pricila Garcia MD Oct 13, 2016 07:56
[2016-10-13 08:00] LABS: BICARBONATE 23.9 MEQ/L (21.0-32.0); MAGNESIUM 1.3 MG/DL (1.5-2.5)
[2016-10-13] MEDS ORDERED: CEFT500T3 PO (08:01)
[2016-10-13] MEDS ORDERED: MAGN1TAB14 PO (08:02)
--- NOTE | 2016-10-13 08:03 | HHI.PR ---
Subjective Remarks Very pleasant today, alert and oriented following commands. He is not agitated , off restraints. Says he was sleeping all night and he was not agitated. Per nurse report he was not agitated last night and he was sleeping all night. Says he had one bowel movement yesterday. Denies nausea or vomiting no diarrhea or constipation. Feels better and he wants to go back to the nursing facility. Denies chest pain, diaphoresis, lightheadedness. Shortness of breath improving, less cough. Denies fevers or chills. Objective Vitals Vital Signs Date Time Temp Pulse Resp B/P Pulse Ox O2 Delivery O2 Flow Rate FiO2 10/13/16 04:00 97.6 79 17 123/61 96 10/13/16 00:00 97.9 97 17 116/55 96 10/12/16 20:00 97.6 72 16 120/57 97 10/12/16 20:00 66 10/12/16 16:26 98.1 65 19 105/57 98 10/12/16 14:39 56 10/12/16 12:33 97.5 56 18 104/54 97 10/12/16 08:34 97 I/O 10/12/16 10/12/16 10/12/16 10/13/16 10/13/16 10/13/16 07:00 15:00 23:00 07:00 15:00 23:00 Intake Total 0 ml 480 ml 2288 ml 180 ml Output Total 500 ml 400 ml 150 ml Balance -500 ml 80 ml 2288 ml 30 ml Intake Oral 0 ml 480 ml 240 ml 180 ml IV Total 2048 ml Output Urine Total 500 ml 400 ml 150 ml # Voids 2 2 # Bowel Movements 1 1 1 Result Diagram: 10/13/16 0639 10/12/16 0139 Imaging Last Impressions Chest X-Ray 10/08/16 1821 Signed Impressions: Service Date/Time: Saturday, October 08, 2016 18:54 - CONCLUSION: No acute cardiopulmonary disease demonstrated. Fred Shanks MD Head CT 10/08/16 0000 Signed Impressions: Service Date/Time: Sunday, October 09, 2016 00:46 - CONCLUSION: Normal examination except fluid in both maxillary sinuses. Chuckie Pinedo MD Objective Remarks GENERAL: This is a pale, cachectic elderly male patient, who appears tired. SKIN: No rashes, ecchymoses or lesions. Cool and dry. HEAD: Atraumatic. Normocephalic. Temporal wasting noted. EYES: No scleral icterus. No injection or drainage. ENT: Nose without bleeding, purulent drainage. NECK: Trachea midline. No JVD or lymphadenopathy. CARDIOVASCULAR: Regular rate and rhythm without murmurs, gallops, or rubs. RESPIRATORY: Decreased breath sounds. No Cough. No wheezes, rales, or rhonchi. GASTROINTESTINAL: Abdomen soft, non-tender, nondistended. No guarding. MUSCULOSKELETAL: Extremities without clubbing, cyanosis, or edema. No calf tenderness. NEUROLOGICAL: Alert and oriented, appears tired. Answers questions appropriately to the best of his cognitive ability. A/P Problem List: (1) Diarrhea ICD Code: R19.7 Status: Acute (2) Dementia with aggressive behavior ICD Code: F03.91 Status: Acute (3) Declining functional status ICD Code: R53.81 Status: Acute (4) Leukocytosis ICD Code: D72.829 Status: Acute (5) Hypomagnesemia ICD Code: E83.42 Status: Acute (6) Acute renal failure ICD Code: N17.9 Status: Acute (7) Dehydration ICD Code: E86.0 Status: Acute Assessment and Plan Mr. Scott is a 71 year-old male who presented to the ER on 10/08/2016 from [facility] for evaluation of abnormal labs obtained at the facility: Worsening renal function, increased white count. The patient has been having functional/cognitive decline following back surgery performed in June 12, 2017. Diarrhea. Resolved. - lives at SNF - concern for C. Diff - check for c. diff neg - consider CT abdomen/pelvis if testing negative and symptoms persist - No abd pain Dementia with aggressive behaviors since June 12, 2016 ; now with accompanying functional decline - check CT of head for organic causes - check EEG to r/o seizure activity - Consult psych, appreciate recommendations. Patient is noted agitated on /off. -Reconsult Dr Cueto ( spoke with Dr Cueto he will reevaluate patient as he is noted very aggressive especially at night). Leukocytosis - white blood count of 15.4 with neutrophilia on admission poss PNA, patient with cough and sputum production, started abx and is improving - CXR with no acute cardiopulmonary disease, however the patient is coughing yellow sputum, imaging might lag behind. Continue rocephin and azithro. leukocytosis improving. - patient with diarrhea on admission, resolved. - Repeat CBC in a.m. and follow results Anemia - hemoglobin 10.3, hct 30.3. - no prior labs for comparison - Monitor./ H/H stable Acute renal failure/prerenal azotemia likely secondary to dehydration. Kidney indices improving. - BUN 70, creatinine 2.21, and estimated GFR 30 on admission. Follow trend. - NS bolus given in ER - Start IVF - Recheck bmp in a.m. and follow results Hypomagnesemia> Replaced with PO. Received also by IV mag as Mag severely low. Continue mag po PO daily 400 mg. Continue to monitor and replace. Hypernatremia, hyperchloremia,: change fluids to half normal saline at 83 cc/ hr. Monitor. DVT prophylaxis - Heparin 5000 units q8h subq Code Status DNR signed by patient on chart dated 07/04/2015 also was confirmed DNR code status with healthcare surrogate Neela Rivera, sister on admission Discussed Condition With patient, nurse Discharge plan Plan to discharge back to rehabilitation/ long-term facility. Discussed with [facility] case management for discharge planning Patient is to be off restraints were for 24 hours. His less agitated and is off restraints at this time. We'll discontinue restraints. Problem Qualifiers (1) Leukocytosis: Qualified Code: D72.829 - Leukocytosis, unspecified type (2) Acute renal failure: Qualified Code: N17.9 - Acute renal failure, unspecified acute renal failure type Pricila Garcia MD Oct 13, 2016 08:03
[2016-10-13] MEDS: PANTOPRAZOLE SOD 20 MG DELAYED RELEASE TAB PO SCH (09:45)
[2016-10-13] MEDS: ASPIRIN 81 MG CHEW TAB CHEW SCH (09:45)
[2016-10-13] MEDS: LISINOPRIL 10 MG TAB PO SCH (09:45)
[2016-10-13] MEDS: NIACIN 500 MG EXTENDED RELEASE TAB PO SCH ×3 (09:45→16:21)
[2016-10-13] MEDS: METOPROLOL TARTRATE 25 MG TAB PO SCH ×2 (09:45→21:00)
[2016-10-13] MEDS: TAMSULOSIN HCL 0.4 MG CAP PO SCH ×2 (09:45→21:00)
[2016-10-13] MEDS: ESCITALOPRAM OXALATE 10 MG TAB PO SCH (09:45)
[2016-10-13] MEDS: SODIUM CHLORIDE 0.9% FLUSH 10 ML FLUSH IV FLUSH SCH ×2 (09:46→21:00)
[2016-10-13] MEDS: MAGNESIUM OXIDE 400 MG TAB PO SCH (09:46)
[2016-10-13] MEDS: risperiDONE 0.5 MG TAB PO SCH (12:10)
[2016-10-13] MEDS: AZITHROMYCIN INJ 500 MG in SODIUM CHLOR 0.9% 250 ML INJ 250 ML IV SCH (12:11)
[2016-10-13] MEDS: cefTRIAXone INJ 1,000 MG in SODIUM CHLORIDE 0.9% INJ 100 ML IV SCH (12:11)
[2016-10-13] MEDS: ATORVASTATIN 40 MG TAB PO SCH (21:00)
[2016-10-13] MEDS: risperiDONE 1 MG TAB PO SCH (21:00)
[2016-10-14] VITALS (7 sets, daily range): BP systolic 105–116; BP diastolic 53–73; PULSE 63–84; RESP 18–19; TEMP 97.8–98.2; O2SAT 94–97
[2016-10-14] MEDS: HALOPERIDOL LACTATE 5 MG/ML AMP IM PRN (02:49)
[2016-10-14] MEDS: SODIUM CHLOR 0.45% 1000 ML INJ 1,000 ML IV SCH ×2 (03:15→14:37)
[2016-10-14] MEDS: HEPARIN SODIUM - SQ 10,000 UNITS/ML VIAL SQ SCH ×3 (06:00→22:28)
[2016-10-14] MEDS: METOPROLOL TARTRATE 25 MG TAB PO SCH ×2 (09:13→21:00)
[2016-10-14] MEDS: risperiDONE 0.5 MG TAB PO SCH (09:13)
[2016-10-14] MEDS: ASPIRIN 81 MG CHEW TAB CHEW SCH (09:13)
[2016-10-14] MEDS: SODIUM CHLORIDE 0.9% FLUSH 10 ML FLUSH IV FLUSH SCH ×2 (09:14→21:00)
[2016-10-14] MEDS: MAGNESIUM OXIDE 400 MG TAB PO SCH (09:14)
[2016-10-14] MEDS: ESCITALOPRAM OXALATE 10 MG TAB PO SCH (09:14)
[2016-10-14] MEDS: TAMSULOSIN HCL 0.4 MG CAP PO SCH ×2 (09:14→22:28)
[2016-10-14] MEDS: LISINOPRIL 10 MG TAB PO SCH (09:14)
[2016-10-14] MEDS: NIACIN 500 MG EXTENDED RELEASE TAB PO SCH ×3 (09:14→18:25)
[2016-10-14] MEDS: PANTOPRAZOLE SOD 20 MG DELAYED RELEASE TAB PO SCH (09:14)
--- NOTE | 2016-10-14 09:54 | HHI.PR ---
Subjective Remarks Says he had a loose stool/diarrhea overnight x2 times. No abdominal pain, however he reports left lower quadrant abd pain with deep palpation. No feevr or chills. Says she is eating well. He is not confused and was not agitated. He is off soft restraints since yesterday. No nausea or vomiting. Less cough. Objective Vitals Vital Signs Date Time Temp Pulse Resp B/P Pulse Ox O2 Delivery O2 Flow Rate FiO2 10/14/16 08:03 97.9 84 19 116/59 95 10/14/16 04:00 98.2 81 18 109/73 94 10/14/16 00:00 98.1 72 18 111/53 94 10/13/16 22:52 Room Air 10/13/16 20:09 91 10/13/16 20:00 97.4 79 18 135/64 96 10/13/16 16:04 97.6 77 18 118/75 97 10/13/16 12:03 97.8 62 18 119/55 97 10/13/16 09:55 68 I/O 10/13/16 10/13/16 10/13/16 10/14/16 10/14/16 10/14/16 07:00 15:00 23:00 07:00 15:00 23:00 Intake Total 180 ml 280 ml 1950 ml 100 ml Output Total 150 ml 800 ml 400 ml 500 ml Balance 30 ml -520 ml 1550 ml -400 ml Intake Oral 180 ml 280 ml 240 ml 100 ml IV Total 1710 ml Output Urine Total 150 ml 800 ml 400 ml 500 ml # Voids 1 # Bowel Movements 1 2 1 Result Diagram: 10/13/16 0639 10/13/16 0639 Imaging Last Impressions Chest X-Ray 10/08/16 1821 Signed Impressions: Service Date/Time: Saturday, October 08, 2016 18:54 - CONCLUSION: No acute cardiopulmonary disease demonstrated. Fred Shanks MD Head CT 10/08/16 0000 Signed Impressions: Service Date/Time: Sunday, October 09, 2016 00:46 - CONCLUSION: Normal examination except fluid in both maxillary sinuses. Chuckie Pinedo MD Objective Remarks GENERAL: This is a pale, cachectic elderly male patient, who appears tired. SKIN: No rashes, ecchymoses or lesions. Cool and dry. HEAD: Atraumatic. Normocephalic. Temporal wasting noted. EYES: No scleral icterus. No injection or drainage. ENT: Nose without bleeding, purulent drainage. NECK: Trachea midline. No JVD or lymphadenopathy. CARDIOVASCULAR: Regular rate and rhythm without murmurs, gallops, or rubs. RESPIRATORY: Decreased breath sounds. No Cough. No wheezes, rales, or rhonchi. GASTROINTESTINAL: Abdomen soft mild abd pain left lower quadrant, nondistended. No guarding. MUSCULOSKELETAL: Extremities without clubbing, cyanosis, or edema. No calf tenderness. NEUROLOGICAL: Alert and oriented, appears tired. Answers questions appropriately to the best of his cognitive ability. A/P Problem List: (1) Diarrhea ICD Code: R19.7 Status: Acute (2) Dementia with aggressive behavior ICD Code: F03.91 Status: Acute (3) Declining functional status ICD Code: R53.81 Status: Acute (4) Leukocytosis ICD Code: D72.829 Status: Acute (5) Hypomagnesemia ICD Code: E83.42 Status: Acute (6) Acute renal failure ICD Code: N17.9 Status: Acute (7) Dehydration ICD Code: E86.0 Status: Acute Assessment and Plan Mr. Scott is a 71 year-old male who presented to the ER on 10/08/2016 from [facility] for evaluation of abnormal labs obtained at the facility: Worsening renal function, increased white count. The patient has been having functional/cognitive decline following back surgery performed in June 12, 2017. Diarrhea. With diarrhea again overnight 10/13 - lives at SNF - concern for C. Diff - check for c. diff neg on admission was negative. Will recheck for c diff as patient is on abx . Start probiotics. - will check CT abdomen/pelvis as symptoms persist - will check CBC, BMP , mag and phos Dementia with aggressive behaviors since June 12, 2016 ; now with accompanying functional decline - check CT of head for organic causes - check EEG to r/o seizure activity - Consult psych, appreciate recommendations. Patient is noted agitated on /off. - Seen by Dr Cueto, psych , appreciate recommendations. Leukocytosis - white blood count of 15.4 with neutrophilia on admission poss PNA, patient with cough and sputum production, started abx and is improving - CXR with no acute cardiopulmonary disease, however the patient is coughing yellow sputum, imaging might lag behind. Continue rocephin and azithro. leukocytosis improving. - patient with diarrhea on admission, resolved. - Repeat CBC in a.m. and follow results Anemia - hemoglobin 10.3, hct 30.3. on admission - no prior labs for comparison - Monitor./ H/H stable Acute renal failure/prerenal azotemia likely secondary to dehydration. Kidney indices improving. - BUN 70, creatinine 2.21, and estimated GFR 30 on admission. Follow trend. - NS bolus given in ER - Start IVF - Recheck bmp in a.m. and follow results Hypomagnesemia> Replaced with PO. Received also by IV mag as Mag severely low. Continue mag po PO daily 400 mg. Continue to monitor and replace. Hypernatremia, hyperchloremia,: change fluids to half normal saline at 83 cc/ hr. Monitor. DVT prophylaxis - Heparin 5000 units q8h subq Code Status DNR signed by patient on chart dated 07/04/2015 also was confirmed DNR code status with healthcare surrogate Neela Rivera, sister on admission Discussed Condition With patient, nurse Discharge plan Plan to discharge back to rehabilitation/ long-term facility. Discussed with case management for discharge planning Patient is off restraints for 24 hours. Problem Qualifiers (1) Leukocytosis: Qualified Code: D72.829 - Leukocytosis, unspecified type (2) Acute renal failure: Qualified Code: N17.9 - Acute renal failure, unspecified acute renal failure type Pricila Garcia MD Oct 14, 2016 09:54
[2016-10-14] MEDS ORDERED: LACTOBACILLUS ACIDOPHILUS TAB PO ONE (10:00)
[2016-10-14] MEDS: MAGNESIUM SULFATE 1 GM PREMIX 100 ML IV SCH ×2 (11:41→12:58)
[2016-10-14 12:10] LABS: C. DIFF EPI 027 PRESUMPTIVE NEGATIVE (NEGATIVE); C. DIFF TOXIN PCR NEGATIVE (NEGATIVE)
[2016-10-14] MEDS ORDERED: DIATRIZOATE MEGLUM/DIATRIZOATE SOD 9 ML CUP PO ONE (12:30)
[2016-10-14] MEDS: cefTRIAXone INJ 1,000 MG in SODIUM CHLORIDE 0.9% INJ 100 ML IV SCH (14:30)
[2016-10-14] MEDS: AZITHROMYCIN INJ 500 MG in SODIUM CHLOR 0.9% 250 ML INJ 250 ML IV SCH (14:30)
[2016-10-14] MEDS: LACTOBACILLUS ACIDOPHILUS TAB PO SCH ×2 (14:31→18:22)
[2016-10-14] MEDS ORDERED: IOHEXOL 350 MG/ML 10 ML VIAL (for RAD DIAG) IV ONE (15:25)
--- NOTE | 2016-10-14 15:46 | RADRPT ---
EXAM DATE/TIME: 10/14/2016 15:13 [place] COMPARISON: No previous studies available for comparison. INDICATIONS : Left lower abdomen pain and diarrhea today. IV CONTRAST: 71 cc Omnipaque 350 (iohexol) IV ORAL CONTRAST: Prescribed oral contrast ingested. RADIATION DOSE: 13.52 CTDIvol (mGy) MEDICAL HISTORY : Carcinoma, prostate. Hypertension. Chronic obstructive pulmonary disease. SURGICAL HISTORY : None. ENCOUNTER: Initial ACUITY: 1 day PAIN SCALE: 7/10 LOCATION: Left lower quadrant TECHNIQUE: Volumetric scanning of the abdomen and pelvis was performed. Using automated exposure control and ad justment of the mA and/or kV according to patient size, radiation dose was kept as low as reasonably achievable to obtain optimal diagnostic quality images. FINDINGS: LOWER LUNGS: Small bilateral pleural effusions, right larger than left. There is also some consolidation or atele ctasis in the right lower lung adjacent to the effusion. LIVER: Homogeneous density without lesion. There is no dilation of the biliary tree. No calcified gallston es. SPLEEN: Normal size without lesion. PANCREAS: The body and tail have a normal appearance. Within the uncinate process, there is a 12 mm irregular margin hypodense area without internal or surrounding enhancement. The accessory pancreatic duct ap pears to course through or about this area. The main pancreatic duct is normal in size. No pancreat ic calcifications. KIDNEYS: There is a 3 mm nonobstructing calcified stone in the lower pole of the right kidney. No calcified s tones in the left kidney. No hydronephrosis. 1 cm cyst anterior mid pole right kidney. ADRENAL GLANDS: Within normal limits. VASCULAR: The aorta is normal dimension. Dense vascular calcification in the aorta and iliac vessels. The lef t common iliac artery measures 1.4 cm in width. BOWEL/MESENTERY: Loops of small and large bowel are normal in dimension. There is colonic interposition anterior to t he right lower liver. No evidence of free fluid. ABDOMINAL WALL: Within normal limits. RETROPERITONEUM: There is no lymphadenopathy. BLADDER: No wall thickening or mass. REPRODUCTIVE: Moderate enlargement of the prostate indents on the base of the urinary bladder. There are left and right localization metallic markers within the prostate. INGUINAL: Is evidence of prior inguinal hernia repair with multiple metallic sutures in the left and right ingu inal region. There is a small fat containing inguinal hernia on the left side which appears to conta in only fat. A there is a density with in the orifice which measures 12 x 16 mm, best seen on image #77. This is of uncertain significance; a surgically placed plug could have this appearance, but a f ocal eventration could also have this appearance. There are 2 mildly prominent left inguinal nodes i nferior to the inguinal hernia but measure 11 mm in size. MUSCULOSKELETAL: Prior lumbar surgery with bilateral transpedicular screws at L4 and L5 and a metallic interspace david ce. CONCLUSION: 1. Evidence of bilateral inguinal hernia repair with asymmetric appearance with possible reherniation left side. There is a noncalcified opacity with in the left inguinal hernia orifice which is of unc ertain significance. Induration within the hernia as well as a surgically placed plug could both hav e this appearance. Recommend correlation with surgical procedural note to see whether a left inguina l plug was deployed. 2. Solitary nonobstructing calcified stone lower pole right kidney. 3. Bilateral pleural effusions, small, and some compressive atelectasis or infiltrate in the right co stophrenic angle. 4. Calcified left iliac artery aneurysm. 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 Jos Burr MD on October 14, 2016 at 15:36 Board Certified Radiologist. This report was verified electronically.
[2016-10-14 21:03] LABS: MEAN CORPUSCULAR HGB CONC 36.2 % (32.0-36.0)
[2016-10-14] MEDS: ATORVASTATIN 40 MG TAB PO SCH (22:28)
[2016-10-14] MEDS: risperiDONE 1 MG TAB PO SCH (22:28)
[2016-10-15] VITALS (7 sets, daily range): BP systolic 93–139; BP diastolic 51–63; PULSE 48–93; RESP 16–18; TEMP 97.2–98.6; O2SAT 94–98
[2016-10-15] MEDS: SODIUM CHLOR 0.45% 1000 ML INJ 1,000 ML IV SCH ×2 (03:05→15:00)
[2016-10-15] MEDS: HEPARIN SODIUM - SQ 10,000 UNITS/ML VIAL SQ SCH ×3 (06:00→21:22)
[2016-10-15] MEDS: LACTOBACILLUS ACIDOPHILUS TAB PO SCH ×3 (07:38→17:01)
[2016-10-15] MEDS: PANTOPRAZOLE SOD 20 MG DELAYED RELEASE TAB PO SCH (07:38)
[2016-10-15] MEDS: METOPROLOL TARTRATE 25 MG TAB PO SCH ×2 (07:39→21:17)
[2016-10-15] MEDS: TAMSULOSIN HCL 0.4 MG CAP PO SCH ×2 (07:39→21:17)
[2016-10-15] MEDS: ESCITALOPRAM OXALATE 10 MG TAB PO SCH (07:39)
[2016-10-15] MEDS: LISINOPRIL 10 MG TAB PO SCH (07:39)
[2016-10-15] MEDS: risperiDONE 0.5 MG TAB PO SCH (07:39)
[2016-10-15] MEDS: NIACIN 500 MG EXTENDED RELEASE TAB PO SCH ×3 (07:39→17:01)
[2016-10-15] MEDS: ASPIRIN 81 MG CHEW TAB CHEW SCH (07:39)
[2016-10-15 07:42] LABS: AUTOMATED NEUTROPHIL # 4.4 TH/MM3 (1.8-7.7); BASOPHIL % 0.4 % (0.0-2.0); EOSINOPHIL # 0.1 TH/MM3 (0-0.4); EOSINOPHIL % 2.5 % (0.0-4.0); HEMATOCRIT 26.3 % (39.0-51.0); LYMPH % 9.4 % (9.0-44.0); LYMPHOCYTE # 0.5 TH/MM3 (1.0-4.8); MEAN CELL VOLUME 85.5 FL (80.0-100.0); NEUT % 77.7 % (16.0-70.0); PLATELET COUNT 128 TH/MM3 (150-450); RED BLOOD COUNT 3.07 MIL/MM3 (4.50-5.90); RED CELL DISTRIBUTION WIDTH 14.4 % (11.6-17.2); WHITE BLOOD COUNT 5.7 TH/MM3 (4.0-11.0)
[2016-10-15] MEDS: SODIUM CHLORIDE 0.9% FLUSH 10 ML FLUSH IV FLUSH SCH ×2 (07:42→21:00)
[2016-10-15 07:44] LABS: HEMO FLAGS AUTO DIFF
[2016-10-15] MEDS ORDERED: POTASSIUM PHOSPHATE MONOBASIC 500 MG TAB PO ONE ×2 (08:00→09:30)
[2016-10-15 08:19] LABS: BICARBONATE 24.9 MEQ/L (21.0-32.0); MAGNESIUM 1.5 MG/DL (1.5-2.5); POTASSIUM 3.4 MEQ/L (3.5-5.1)
[2016-10-15 08:26] LABS: ACANTHOCYTES OCC (NORMAL); PLATELET ESTIMATE SMEAR LOW (NORMAL); PLATELET MORPHOLOGY NORMAL (NORMAL); SCAN/DIFF AUTO DIFF CONFIRMED
[2016-10-15] MEDS ORDERED: MAGNESIUM OXIDE 400 MG TAB PO SCH (09:00)
[2016-10-15] MEDS ORDERED: CALCIUM CARBONATE 1.25 GM (CA 500 MG) TAB PO ONE (09:30)
[2016-10-15] MEDS ORDERED: POTASSIUM BICARBONATE 25 MEQ EFFERVESCENT TAB PO ONE (09:30)
[2016-10-15] MEDS ORDERED: MAGNESIUM OXIDE 400 MG TAB PO ONE (09:30)
[2016-10-15] MEDS: cefTRIAXone INJ 1,000 MG in SODIUM CHLORIDE 0.9% INJ 100 ML IV SCH (12:27)
[2016-10-15] MEDS: AZITHROMYCIN INJ 500 MG in SODIUM CHLOR 0.9% 250 ML INJ 250 ML IV SCH (13:28)
--- NOTE | 2016-10-15 15:51 | HHI.PR ---
Subjective Remarks In nad. No more agitated. Lytes replaced. Patient says she is eating. L:ess sob , no much cough. No wheezing. However noted with beats on Vtach on telemetry. Will repeat lytes. Will ask cardiology for evaluation and clearance for DC. Patient denies any chest pain or sob, no diaphoresis, nausea, lightheadednes. Objective Vitals Vital Signs Date Time Temp Pulse Resp B/P Pulse Ox O2 Delivery O2 Flow Rate FiO2 10/15/16 12:00 97.2 68 16 102/51 96 10/15/16 08:47 59 10/15/16 08:00 97.2 80 16 139/63 98 10/15/16 07:47 Room Air 10/15/16 04:00 97.9 93 18 120/62 95 10/15/16 00:00 97.7 85 18 123/62 96 10/14/16 22:33 Room Air 10/14/16 20:00 98.2 79 18 108/53 95 10/14/16 16:04 97.9 66 18 105/56 97 I/O 10/14/16 10/14/16 10/14/16 10/15/16 10/15/16 10/15/16 07:00 15:00 23:00 07:00 15:00 23:00 Intake Total 100 ml 320 ml 240 ml 0 ml Output Total 500 ml 1000 ml 1000 ml 750 ml Balance -400 ml -680 ml -760 ml -750 ml Intake Oral 100 ml 320 ml 240 ml 0 ml Output Urine Total 500 ml 1000 ml 1000 ml 750 ml # Voids 1 # Bowel Movements 1 3 1 0 Result Diagram: 10/15/16 0530 10/15/16 0530 Imaging Last Impressions Abdomen/Pelvis CT 10/14/16 0957 Signed Impressions: Service Date/Time: Friday, October 14, 2016 15:13 - CONCLUSION: 1. Evidence of bilateral inguinal hernia repair with asymmetric appearance with possible reherniation left side. There is a noncalcified opacity with in the left inguinal hernia orifice which is of uncertain significance. Induration within the hernia as well as a surgically placed plug could both have this appearance. Recommend correlation with surgical procedural note to see whether a left inguinal plug was deployed. 2. Solitary nonobstructing calcified stone lower pole right kidney. 3. Bilateral pleural effusions, small, and some compressive atelectasis or infiltrate in the right costophrenic angle. 4. Calcified left iliac artery aneurysm. 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 Jos Burr MD Chest X-Ray 10/08/16 1821 Signed Impressions: Service Date/Time: Saturday, October 08, 2016 18:54 - CONCLUSION: No acute cardiopulmonary disease demonstrated. Fred Shanks MD Head CT 10/08/16 0000 Signed Impressions: Service Date/Time: Sunday, October 09, 2016 00:46 - CONCLUSION: Normal examination except fluid in both maxillary sinuses. Chuckie Pinedo MD Objective Remarks GENERAL: This is a pale, cachectic elderly male patient, who appears tired. SKIN: No rashes, ecchymoses or lesions. Cool and dry. HEAD: Atraumatic. Normocephalic. Temporal wasting noted. EYES: No scleral icterus. No injection or drainage. ENT: Nose without bleeding, purulent drainage. NECK: Trachea midline. No JVD or lymphadenopathy. CARDIOVASCULAR: Regular rate and rhythm without murmurs, gallops, or rubs. RESPIRATORY: Decreased breath sounds. No Cough. No wheezes, rales, or rhonchi. GASTROINTESTINAL: Abdomen soft mild abd pain left lower quadrant, nondistended. No guarding. MUSCULOSKELETAL: Extremities without clubbing, cyanosis, or edema. No calf tenderness. NEUROLOGICAL: Alert and oriented, appears tired. Answers questions appropriately to the best of his cognitive ability. A/P Problem List: (1) Diarrhea ICD Code: R19.7 Status: Acute (2) Dementia with aggressive behavior ICD Code: F03.91 Status: Acute (3) Declining functional status ICD Code: R53.81 Status: Acute (4) Leukocytosis ICD Code: D72.829 Status: Acute (5) Hypomagnesemia ICD Code: E83.42 Status: Acute (6) Acute renal failure ICD Code: N17.9 Status: Acute (7) Dehydration ICD Code: E86.0 Status: Acute Assessment and Plan Mr. Scott is a 71 year-old male who presented to the ER on 10/08/2016 from [facility] for evaluation of abnormal labs obtained at the facility: Worsening renal function, increased white count. The patient has been having functional/cognitive decline following back surgery performed in June 12, 2017. Noted with beats of Vtach on tele. Patient without any hest pain/sob. VS stable. Lytes were replaced. Will recheck labs. Will check EKG, trop and ask cardiology for evaluation and clearance for DC. Diarrhea. With diarrhea again overnight 10/13 - lives at SNF - concern for C. Diff - check for c. diff neg on admission was negative. Will recheck for c diff as patient is on abx . Start probiotics. - will check CT abdomen/pelvis as symptoms persist - will check CBC, BMP , mag and phos Dementia with aggressive behaviors since June 12, 2016 ; now with accompanying functional decline - check CT of head for organic causes - check EEG to r/o seizure activity - Consult psych, appreciate recommendations. Patient is noted agitated on /off. - Seen by Dr Cueto, psych , appreciate recommendations. Leukocytosis - white blood count of 15.4 with neutrophilia on admission poss PNA, patient with cough and sputum production, started abx and is improving - CXR with no acute cardiopulmonary disease, however the patient is coughing yellow sputum, imaging might lag behind. Continue rocephin and azithro. leukocytosis improving. - patient with diarrhea on admission, resolved. - Repeat CBC in a.m. and follow results Anemia - hemoglobin 10.3, hct 30.3. on admission - no prior labs for comparison - Monitor./ H/H stable Acute renal failure/prerenal azotemia likely secondary to dehydration. Kidney indices improving. - BUN 70, creatinine 2.21, and estimated GFR 30 on admission. Follow trend. - NS bolus given in ER - Start IVF - Recheck bmp in a.m. and follow results Hypomagnesemia> Replaced with PO. Received also by IV mag as Mag severely low. Continue mag po PO daily 400 mg. Continue to monitor and replace. Hypernatremia, hyperchloremia,: change fluids to half normal saline at 83 cc/ hr. Monitor. DVT prophylaxis - Heparin 5000 units q8h subq Code Status DNR signed by patient on chart dated 07/04/2015 also was confirmed DNR code status with healthcare surrogate Neela Rivera, sister on admission Discussed Condition With patient, nurse Discharge plan Plan to discharge back to rehabilitation/ long-term facility. Discussed with case management for discharge planning Patient is off restraints for > 24 hours. Noted with beats of V tach Problem Qualifiers (1) Leukocytosis: Qualified Code: D72.829 - Leukocytosis, unspecified type (2) Acute renal failure: Qualified Code: N17.9 - Acute renal failure, unspecified acute renal failure type Pricila Garcia MD Oct 15, 2016 15:51
[2016-10-15 16:45] LABS: ALT (GPT) 36 U/L (12-78); ANION GAP 7 MEQ/L (5-15); AST (GOT) 43 U/L (15-37); BICARBONATE 24.7 MEQ/L (21.0-32.0); BLOOD UREA NITROGEN 7 MG/DL (7-18); CHLORIDE 108 MEQ/L (98-107); GLOMERULAR FILTRATION RATE 82 ML/MIN (>89); MAGNESIUM 1.5 MG/DL (1.5-2.5); SODIUM (NA) 140 MEQ/L (136-145)
[2016-10-15 16:47] LABS: ALKALINE PHOSPHATASE 68 U/L (45-117); TOTAL BILIRUBIN ADULT 0.2 MG/DL (0.2-1.0)
[2016-10-15] MEDS: risperiDONE 1 MG TAB PO SCH (21:16)
[2016-10-15] MEDS: ATORVASTATIN 40 MG TAB PO SCH (21:17)
[2016-10-15] MEDS: MAGNESIUM OXIDE 400 MG TAB PO SCH (21:17)
[2016-10-16] VITALS (7 sets, daily range): BP systolic 100–141; BP diastolic 52–92; PULSE 70–102; RESP 16–22; TEMP 97.5–98.8; O2SAT 94–97
[2016-10-16] MEDS: SODIUM CHLOR 0.45% 1000 ML INJ 1,000 ML IV SCH ×2 (04:18→16:36)
[2016-10-16] MEDS: HEPARIN SODIUM - SQ 10,000 UNITS/ML VIAL SQ SCH ×3 (05:33→21:13)
--- NOTE | 2016-10-16 07:12 | MB ---
cc: DARA GALLEGOS DATE OF CONSULTATION 10/15/2016 REASON FOR CONSULTATION Mr. Scott is a 71 year-old white male with a history of coronary artery disease, coronary artery bypass in 1996, diabetes mellitus, hypertension who presented with lethargy, confusion, and generalized weakness. He has a history of multiple falls. He was in the hospital after a fall in June. He was found to have worsening of his renal function and low magnesium. He has had no chest pain. He complains of occasional shortness of breath. He has had no palpitations, dizziness or peripheral edema. PAST MEDICAL HISTORY Positive for: 1. Five vessel coronary artery bypass in 1996. 2. Type 2 diabetes mellitus 3. Hypertension 4. Dyslipidemia 5. COPD 6. Congestive heart failure 7. Prostate cancer treated with radiation therapy four years Ago. 8. Achilles tendon rupture 9. Herniation C4, degenerative disc disease 10. Glaucoma 11. C3-C4 disk fusion 12. Hernia repair 13. Left hand and arm surgery 14. Back surgery 15. 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 MEDICATIONS Include: 1. Digoxin 2. Metformin 3. Atorvastatin 5. Lisinopril 6. Flomax 7. Glimepiride 8. Omeprazole 9. Meclizine 10. Flomax 11. Niacin 12. Theophylline ALLERGIES None SOCIAL HISTORY The patient quit smoking in 1996. He drinks wine occasionally. FAMILY HISTORY Positive for heart disease. PHYSICAL EXAM Blood pressure 93/55, pulse 66 and regular. HEAD, EYES, EARS, NOSE, AND THROAT: Negative. 2+carotid upstrokes. No bruits. LUNGS: Clear. HEART: Regular with no murmur, gallop, rub. ABDOMEN: Soft, no bruits. EXTREMITIES: Without edema. Good distal pulses. Congenital abnormalities. NEUROLOGIC: Grossly nonfocal. There is mild confusion. The patient has currently finished eating his dinner. EKG was reviewed and showed a normal sinus rhythm, normal axis, several delayed R-wave progression in pericardial leads. Left atrial enlargement. LABS Hemoglobin 9.5, potassium 4.0, creatinine 0.9, AST 43, ALT 36, troponin less than 0.02, magnesium 1.3 and 1.5. TELEMETRY Shows a prolonged episode of nonsustained wide complex tachycardia, this starts with a PAC and is most likely consistent with supraventricular tachycardia with aberrancy. DIAGNOSIS 1. Wide complex tachycardia 2. Coronary artery disease, status post coronary artery bypass. 3. History of congestive heart failure. 4. Acute renal insufficiency 5. Hypomagnesemia 6. Dementia DISPOSITION Mr. Scott will be monitored on telemetry. I recommend to continue his current medical program including therapy with metoprolol. I recommend obtaining an echocardiogram to evaluate his left ventricular function. We will continue therapy for congestive heart failure. We will continue aggressive modification of his cardiac risk factors. I recommend to increase his activities. I will follow him for cardiology during his hospitalization. MD FRANKI Dominguez/DJL /5:50 PM /6:40 AM MTDD
[2016-10-16] MEDS: METOPROLOL TARTRATE 25 MG TAB PO SCH ×2 (07:57→21:13)
[2016-10-16] MEDS: LACTOBACILLUS ACIDOPHILUS TAB PO SCH ×3 (07:57→17:23)
[2016-10-16] MEDS: MAGNESIUM OXIDE 400 MG TAB PO SCH ×2 (07:57→21:13)
[2016-10-16] MEDS: SODIUM CHLORIDE 0.9% FLUSH 10 ML FLUSH IV FLUSH SCH ×2 (07:58→21:12)
[2016-10-16] MEDS: LISINOPRIL 10 MG TAB PO SCH (07:58)
[2016-10-16] MEDS: ESCITALOPRAM OXALATE 10 MG TAB PO SCH (07:58)
[2016-10-16] MEDS: PANTOPRAZOLE SOD 20 MG DELAYED RELEASE TAB PO SCH (07:58)
[2016-10-16] MEDS: ASPIRIN 81 MG CHEW TAB CHEW SCH (07:58)
[2016-10-16] MEDS: TAMSULOSIN HCL 0.4 MG CAP PO SCH ×2 (07:58→21:13)
[2016-10-16] MEDS: NIACIN 500 MG EXTENDED RELEASE TAB PO SCH ×3 (07:58→17:23)
[2016-10-16] MEDS: risperiDONE 0.5 MG TAB PO SCH (07:58)
--- NOTE | 2016-10-16 08:58 | EKG ---
Date Performed: 10/15/2016 Time Performed: 16:40:50 PTAGE: 71 years EKG: Sinus rhythm . Inferior ST-T changes are nonspecific Borderline ECG PREVIOUS TRACING : 10/08/2016 18.34 Compared to previous tracing, baseline artefact is no longe r present. DOCTOR: Orlando Li Interpretating Date/Time 10/16/2016 08:56:56
--- NOTE | 2016-10-16 11:08 | HHI.PR ---
Subjective Remarks Patient had 6 beats of Vtach overnight. Cardiology recommends EcHO results still pending. Patient has a BM in the morning. He appears in nad. Says she feels good and he wants to go back home today. Patient denies any chest pain, n/v. No palpitations, says he doesn't feel anything in his chest. Objective Vitals Vital Signs Date Time Temp Pulse Resp B/P Pulse Ox O2 Delivery O2 Flow Rate FiO2 10/16/16 08:00 98.3 74 22 136/92 95 10/16/16 07:53 Room Air 10/16/16 07:53 74 10/16/16 04:00 98.8 70 16 100/55 94 10/16/16 00:00 97.9 75 16 105/52 95 10/15/16 20:00 98.6 79 16 96/54 94 10/15/16 20:00 48 10/15/16 20:00 Room Air 10/15/16 16:00 97.8 66 16 93/55 95 10/15/16 12:00 97.2 68 16 102/51 96 I/O 10/15/16 10/15/16 10/15/16 10/16/16 10/16/16 10/16/16 07:00 15:00 23:00 07:00 15:00 23:00 Intake Total 0 ml 360 ml 3695 ml 1015 ml Output Total 750 ml 575 ml Balance -750 ml -215 ml 3695 ml 1015 ml Intake Oral 0 ml 360 ml 240 ml 100 ml IV Total 3455 ml 915 ml Output Urine Total 750 ml 575 ml # Voids 1 3 # Bowel Movements 0 0 1 2 Result Diagram: 10/15/16 0530 10/15/16 1545 Imaging Last Impressions Abdomen/Pelvis CT 10/14/16 0957 Signed Impressions: Service Date/Time: Friday, October 14, 2016 15:13 - CONCLUSION: 1. Evidence of bilateral inguinal hernia repair with asymmetric appearance with possible reherniation left side. There is a noncalcified opacity with in the left inguinal hernia orifice which is of uncertain significance. Induration within the hernia as well as a surgically placed plug could both have this appearance. Recommend correlation with surgical procedural note to see whether a left inguinal plug was deployed. 2. Solitary nonobstructing calcified stone lower pole right kidney. 3. Bilateral pleural effusions, small, and some compressive atelectasis or infiltrate in the right costophrenic angle. 4. Calcified left iliac artery aneurysm. 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 Jos Burr MD Chest X-Ray 10/08/16 1821 Signed Impressions: Service Date/Time: Saturday, October 08, 2016 18:54 - CONCLUSION: No acute cardiopulmonary disease demonstrated. Fred Shanks MD Head CT 10/08/16 0000 Signed Impressions: Service Date/Time: Sunday, October 09, 2016 00:46 - CONCLUSION: Normal examination except fluid in both maxillary sinuses. Chuckie Pinedo MD Objective Remarks GENERAL: This is a pale, cachectic elderly male patient, who appears tired. SKIN: No rashes, ecchymoses or lesions. Cool and dry. HEAD: Atraumatic. Normocephalic. Temporal wasting noted. EYES: No scleral icterus. No injection or drainage. ENT: Nose without bleeding, purulent drainage. NECK: Trachea midline. No JVD or lymphadenopathy. CARDIOVASCULAR: Regular rate and rhythm without murmurs, gallops, or rubs. RESPIRATORY: Decreased breath sounds. No Cough. No wheezes, rales, or rhonchi. GASTROINTESTINAL: Abdomen soft mild abd pain left lower quadrant, nondistended. No guarding. MUSCULOSKELETAL: Extremities without clubbing, cyanosis, or edema. No calf tenderness. NEUROLOGICAL: Alert and oriented, appears tired. Answers questions appropriately to the best of his cognitive ability. A/P Problem List: (1) Diarrhea ICD Code: R19.7 Status: Acute (2) Dementia with aggressive behavior ICD Code: F03.91 Status: Acute (3) Declining functional status ICD Code: R53.81 Status: Acute (4) Leukocytosis ICD Code: D72.829 Status: Acute (5) Hypomagnesemia ICD Code: E83.42 Status: Acute (6) Acute renal failure ICD Code: N17.9 Status: Acute (7) Dehydration ICD Code: E86.0 Status: Acute Assessment and Plan Mr. Scott is a 71 year-old male who presented to the ER on 10/08/2016 from [facility] for evaluation of abnormal labs obtained at the facility: Worsening renal function, increased white count. The patient has been having functional/cognitive decline following back surgery performed in June 12, 2017. Noted with 34 beats of Vtach on tele 10/15. Patient without any chest pain/sob. VS stable. Lytes were replaced. Will recheck labs. Will check EKG, trop and ask cardiology for evaluation and clearance for DC. Cardiology recommends 2D ECHO pending. Had 6 beats of Vtach overnight 10/16 Diarrhea. With diarrhea again overnight 10/13 - lives at SNF - concern for C. Diff - check for c. diff neg on admission was negative. Will recheck for c diff as patient is on abx . Start probiotics. - will check CT abdomen/pelvis as symptoms persist - will check CBC, BMP , mag and phos Dementia with aggressive behaviors since June 12, 2016 ; now with accompanying functional decline - check CT of head for organic causes - check EEG to r/o seizure activity - Consult psych, appreciate recommendations. Patient is noted agitated on /off. - Seen by Dr Cueto, psych , appreciate recommendations. Leukocytosis - white blood count of 15.4 with neutrophilia on admission poss PNA, patient with cough and sputum production, started abx and is improving - CXR with no acute cardiopulmonary disease, however the patient is coughing yellow sputum, imaging might lag behind. Continue rocephin and azithro. leukocytosis improving. - patient with diarrhea on admission, resolved. - Repeat CBC in a.m. and follow results Anemia - hemoglobin 10.3, hct 30.3. on admission - no prior labs for comparison - Monitor./ H/H stable Acute renal failure/prerenal azotemia likely secondary to dehydration. Kidney indices improving. - BUN 70, creatinine 2.21, and estimated GFR 30 on admission. Follow trend. - NS bolus given in ER - Start IVF - Recheck bmp in a.m. and follow results Hypomagnesemia> Replaced with PO. Received also by IV mag as Mag severely low. Continue mag po PO daily 400 mg. Continue to monitor and replace. Hypernatremia, hyperchloremia,: change fluids to half normal saline at 83 cc/ hr. Monitor. DVT prophylaxis - Heparin 5000 units q8h subq Code Status DNR signed by patient on chart dated 07/04/2015 also was confirmed DNR code status with healthcare surrogate Neela Rivera, sister on admission Discussed Condition With patient, nurse Discharge plan Plan to discharge back to rehabilitation/ long-term facility. Discussed with case management for discharge planning Patient is off restraints for > 24 hours. Noted with beats of V tach, DC when cleared by cardiology Dr Malone. 2D echo done, pending reading. Problem Qualifiers (1) Leukocytosis: Qualified Code: D72.829 - Leukocytosis, unspecified type (2) Acute renal failure: Qualified Code: N17.9 - Acute renal failure, unspecified acute renal failure type Pricila Garcia MD Oct 16, 2016 11:08
[2016-10-16] MEDS: cefTRIAXone INJ 1,000 MG in SODIUM CHLORIDE 0.9% INJ 100 ML IV SCH (12:31)
[2016-10-16] MEDS: AZITHROMYCIN INJ 500 MG in SODIUM CHLOR 0.9% 250 ML INJ 250 ML IV SCH (13:23)
--- NOTE | 2016-10-16 14:46 | PD.CARD.PN ---
Subjective Subjective Remarks No CP or SOB, tele w prolonged episode of NS WCT Objective Medications Current Medications Medications (Trade) Dose Ordered Sig/Shanita Route Start Time Stop Time Status Last Admin (NS Flush) 2 ml UNSCH PRN IV FLUSH 10/08/16 20:30 (NS Flush) 2 ml BID IV FLUSH 10/08/16 21:00 10/14/16 09:14 (Narcan Inj) 0.4 mg UNSCH PRN IV 10/08/16 20:30 (Aspirin Chew) 81 mg DAILY CHEW 10/09/16 09:00 10/16/16 07:58 (Lipitor) 40 mg HS PO 10/09/16 21:00 10/15/16 21:17 (Lexapro) 10 mg DAILY PO 10/09/16 09:00 10/16/16 07:58 (Prinivil) 10 mg DAILY PO 10/09/16 09:00 10/16/16 07:58 (Lopressor) 25 mg BID PO 10/09/16 09:00 10/16/16 07:57 (risperDAL) 0.5 mg DAILY PO 10/09/16 09:00 10/16/16 07:58 (risperDAL) 1 mg HS PO 10/09/16 21:00 10/15/16 21:16 (Flomax) 0.4 mg BID PO 10/09/16 09:00 10/16/16 07:58 (Slo-Niacin) 500 mg TID PO 10/09/16 09:00 10/16/16 12:34 (Protonix) 20 mg DAILY PO 10/09/16 09:00 10/16/16 07:58 Heparin Sodium (Porcine) 5000 units 5,000 units Q8HR SQ 10/08/16 23:30 10/16/16 13:25 Ceftriaxone Sodium 1000 mg/ Sodium Chloride 100 ml @ 200 mls/hr Q24H IV 10/09/16 13:00 10/16/16 12:31 (Zithromax Inj/ NS 250 ml Inj) 250 ml @ 250 mls/hr Q24H IV 10/09/16 13:00 10/16/16 13:23 (Tylenol) 650 mg Q6HR PRN PO 10/09/16 13:30 10/09/16 14:25 (Haldol Inj) 2 mg Q6HR PRN IM 10/09/16 19:15 10/14/16 02:49 Lorazepam 1 mg 1 mg Q6H PRN IV PUSH 10/09/16 19:15 (1/2 NS 1000 ml Inj) 1,000 ml @ 84 mls/hr [id number] IV 10/12/16 15:30 10/16/16 04:18 (Lactinex) 1 tab TID PO 10/14/16 13:00 10/16/16 12:34 (Mag-Ox) 400 mg BID PO 10/15/16 21:00 10/16/16 07:57 Vital Signs / I&O Vital Signs Date Time Temp Pulse Resp B/P Pulse Ox O2 Delivery O2 Flow Rate FiO2 10/16/16 12:00 98.3 74 20 128/61 96 10/16/16 08:00 98.3 74 22 136/92 95 10/16/16 07:53 Room Air 10/16/16 07:53 74 10/16/16 04:00 98.8 70 16 100/55 94 10/16/16 00:00 97.9 75 16 105/52 95 10/15/16 20:00 98.6 79 16 96/54 94 10/15/16 20:00 48 10/15/16 20:00 Room Air 10/15/16 16:00 97.8 66 16 93/55 95 I/O 10/15/16 10/15/16 10/15/16 10/16/16 10/16/16 10/16/16 07:00 15:00 23:00 07:00 15:00 23:00 Intake Total 0 ml 360 ml 3695 ml 1015 ml 716 ml Output Total 750 ml 575 ml Balance -750 ml -215 ml 3695 ml 1015 ml 716 ml Intake Oral 0 ml 360 ml 240 ml 100 ml IV Total 3455 ml 915 ml 716 ml Output Urine Total 750 ml 575 ml # Voids 1 3 # Bowel Movements 0 0 1 2 Physical Exam GENERAL: In NAD, eating breakfast SKIN: Warm and dry. HEAD: Normocephalic. EYES: No scleral icterus. No injection or drainage. NECK: Supple, trachea midline. No JVD or lymphadenopathy. CARDIOVASCULAR: Regular rate and rhythm without murmurs, gallops, or rubs. RESPIRATORY: Breath sounds equal bilaterally. No accessory muscle use. GASTROINTESTINAL: Abdomen soft, non-tender, nondistended. MUSCULOSKELETAL: No cyanosis, or edema. UE deformities. Laboratory Laboratory Tests Test 10/15/16 15:45 Sodium Level 140 MEQ/L Potassium Level 4.0 MEQ/L Chloride Level 108 MEQ/L Carbon Dioxide Level 24.7 MEQ/L Anion Gap 7 MEQ/L Blood Urea Nitrogen 7 MG/DL Creatinine 0.92 MG/DL Estimat Glomerular Filtration 82 ML/MIN Rate Random Glucose 161 MG/DL Calcium Level 8.2 MG/DL Phosphorus Level 2.3 MG/DL Magnesium Level 1.5 MG/DL Total Bilirubin 0.2 MG/DL Aspartate Amino Transf 43 U/L (AST/SGOT) Alanine Aminotransferase 36 U/L (ALT/SGPT) Alkaline Phosphatase 68 U/L Troponin I LESS THAN 0.02 NG/ML Total Protein 4.9 GM/DL Albumin 2.2 GM/DL Imaging Last Impressions Abdomen/Pelvis CT 10/14/16 0957 Signed Impressions: Service Date/Time: Friday, October 14, 2016 15:13 - CONCLUSION: 1. Evidence of bilateral inguinal hernia repair with asymmetric appearance with possible reherniation left side. There is a noncalcified opacity with in the left inguinal hernia orifice which is of uncertain significance. Induration within the hernia as well as a surgically placed plug could both have this appearance. Recommend correlation with surgical procedural note to see whether a left inguinal plug was deployed. 2. Solitary nonobstructing calcified stone lower pole right kidney. 3. Bilateral pleural effusions, small, and some compressive atelectasis or infiltrate in the right costophrenic angle. 4. Calcified left iliac artery aneurysm. 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 Jos Burr MD Chest X-Ray 10/08/16 1821 Signed Impressions: Service Date/Time: Saturday, October 08, 2016 18:54 - CONCLUSION: No acute cardiopulmonary disease demonstrated. Fred Shanks MD Head CT 10/08/16 0000 Signed Impressions: Service Date/Time: Sunday, October 09, 2016 00:46 - CONCLUSION: Normal examination except fluid in both maxillary sinuses. Chuckie Pinedo MD Assessment and Plan Problem List: (1) Wide-complex tachycardia (2) CAD, multiple vessel (3) S/P coronary artery bypass graft x 6 (4) Diabetes mellitus (5) Hypertension (6) Hyperlipidemia (7) Dementia with aggressive behavior Assessment and Plan No new cardiac issues. Echo today. No recurrent tachyarrhythmias. Increase activity. Continue current program. ePri Malone MD Oct 16, 2016 14:46
--- NOTE | 2016-10-16 16:01 | EC ---
Study Study Date:10/16/2016 STUDY CONCLUSIONS SUMMARY - Left ventricle: The cavity size was normal. Wall thickness was increased in a pattern of mild LVH. Systolic function was mildly reduced. The estimated ejection fraction was in the range of 45% to 50%. Diffuse hypokinesis. - Aortic valve: Mild regurgitation. Valve area: 2.37cm^2 (Vmax). - Mitral valve: Mild regurgitation. If LV function is below 40, please consider prescribing an ACEI or ARB or document rationale for non-use. PROCEDURE DATA STUDY STATUS: Elective. Procedure: Transthoracic echocardiography. Image quality was good. Scanning was performed from the parasternal, apical, and subcostal acoustic windows. Study completion: The patient tolerated the procedure well. Transthoracic echocardiography. M-mode, complete 2D, complete spectral Doppler, and color Doppler. Height: Height: 62in. Weight: Weight: 120.7lb. Body mass index: BMI: 22.1kg/m^2. Body surface area: BSA: 1.54m^2. Patient status: Inpatient. CARDIAC ANATOMY LEFT VENTRICLE: The cavity size was normal. Wall thickness was increased in a pattern of mild LVH. Systolic function was mildly reduced. The estimated ejection fraction was in the range of 45% to 50%. Diffuse hypokinesis. AORTIC VALVE: Trileaflet; normal thickness leaflets. Doppler: Transvalvular velocity was within the normal range. There was no stenosis. Mild regurgitation. Valve area: 2.37cm^2 (Vmax). Indexed valve area: 1.54cm^2/m^2 (Vmax). AORTA: Aortic root: The aortic root was normal in size. MITRAL VALVE: Structurally normal valve. Doppler: Transvalvular velocity was within the normal range. There was no evidence for stenosis. Mild regurgitation. Valve area by pressure half-time: 3.44cm^2. Indexed valve area by pressure half-time: 2.23cm^2/m^2. Peak gradient: 4mm Hg (D). LEFT ATRIUM: The atrium was normal in size. RIGHT VENTRICLE: The cavity size was normal. Wall thickness was normal. PULMONIC VALVE: Doppler: Transvalvular velocity was within the normal range. There was no evidence for stenosis. No regurgitation. TRICUSPID VALVE: Structurally normal valve. Doppler: Transvalvular velocity was within the normal range. No regurgitation. Peak gradient: 17mm Hg (D). PULMONARY ARTERY: The main pulmonary artery was normal-sized. Systolic pressure was within the normal range. RIGHT ATRIUM: The atrium was normal in size. PERICARDIUM: There was no pericardial effusion. SYSTEMIC VEINS: Inferior vena cava: The vessel was normal in size. Patient weight: 120.7lb _Ejection fraction:_ 65-75% _Fractional shortening:_ 32% up to 5Kg 5-11.5Kg 11.6-22.9Kg 23-45Kg 45-57Kg Aortic Root 7-13 <17 13-22 17-27 17-27 LA diam 6-13 <23 24-38 33-47 37-40 RVID 10-17 7-15 7-15 7-18 8-17 LVIDd 12-22 <32 24-38 33-47 37-40 LVPW 2-4 3-6 5-7 6-8 7-8 IVS 2-4 3-6 5-7 6-8 7-8 BASIC MEASUREMENTS ADULT NORMAL Left ventricle LV internal dimension, ED, chordal *36.8 mm 43-52 level, PLAX LV internal dimension, ES, chordal 30.2 mm 23-38 level, PLAX Fractional shortening, chordal level, *18 % >29 PLAX LV posterior wall thickness, ED 14.1 mm IVS/LVPW ratio, ED 1 <1.3 Ventricular septum Septal thickness, ED 14.1 mm Aortic valve Leaflet separation 18 mm 15-26 Left atrium Anterior-posterior dimension 40 mm Anterior-posterior dimension index *2.6 cm/m^2 <2.2 Right ventricle RV internal dimension, ED, PLAX 28.9 mm 19-38 BASIC MEASUREMENTS ADULT NORMAL Aortic valve Leaflet separation 18 mm 15-26 Aorta Root diameter, ED 32 mm 20-37 DOPPLER MEASUREMENTS ADULT NORMAL Aortic valve Peak velocity, S 130 cm/s Valve area, Vmax 2.37 cm^2 Valve area index, Vmax 1.54 cm^2/m^2 Regurgitant velocity, ED 284 cm/s Regurgitant deceleration 1860 cm/s^2 Regurgitant pressure half-time 447 ms Regurgitant gradient, ED 32 mm Hg Mitral valve Peak E-wave velocity 103 cm/s Peak A-wave velocity 72.1 cm/s Pressure half-time 64 ms Peak gradient, D 4 mm Hg Peak E/A ratio 1.4 Valve area, pressure half-time 3.44 cm^2 Valve area index, pressure half-time 2.23 cm^2/m^2 Tricuspid valve Peak gradient, D 17 mm Hg Maximal inflow velocity 207 cm/s Systemic veins Estimated CVP 10 mm Hg Pulmonic valve Peak velocity, S 83.3 cm/s LEGEND: Mean values are shown as u=mean value. Asterisk (*) harden values outside specified normal range. Prepared and signed by Sherley Marshall [id number]
[2016-10-16] MEDS: risperiDONE 1 MG TAB PO SCH (21:13)
[2016-10-16] MEDS: ATORVASTATIN 40 MG TAB PO SCH (21:13)
[2016-10-17] VITALS (7 sets, daily range): BP systolic 101–139; BP diastolic 53–60; PULSE 66–97; RESP 16–18; TEMP 97.7–98.7; O2SAT 95–98
[2016-10-17] MEDS: SODIUM CHLOR 0.45% 1000 ML INJ 1,000 ML IV SCH ×2 (02:45→13:28)
[2016-10-17] MEDS: HEPARIN SODIUM - SQ 10,000 UNITS/ML VIAL SQ SCH ×3 (05:54→21:26)
[2016-10-17 07:35] LABS: AUTOMATED NEUTROPHIL # 3.6 TH/MM3 (1.8-7.7); BASOPHIL % 0.7 % (0.0-2.0); EOSINOPHIL # 0.1 TH/MM3 (0-0.4); EOSINOPHIL % 2.8 % (0.0-4.0); HEMO FLAGS DIFF FINAL; LYMPHOCYTE # 0.6 TH/MM3 (1.0-4.8); MEAN CELL VOLUME 88.1 FL (80.0-100.0); MEAN CORPUSCULAR HEMOGLOBIN 30.9 PG (27.0-34.0); MONO % 12.4 % (0.0-8.0); NEUT % 72.1 % (16.0-70.0); PLATELET COUNT 130 TH/MM3 (150-450); RED BLOOD COUNT 2.95 MIL/MM3 (4.50-5.90); RED CELL DISTRIBUTION WIDTH 14.6 % (11.6-17.2)
[2016-10-17 08:02] LABS: BICARBONATE 29.9 MEQ/L (21.0-32.0); MAGNESIUM 1.4 MG/DL (1.5-2.5); POTASSIUM 3.5 MEQ/L (3.5-5.1)
[2016-10-17] MEDS: SODIUM CHLORIDE 0.9% FLUSH 10 ML FLUSH IV FLUSH SCH ×2 (09:00→21:25)
[2016-10-17] MEDS: risperiDONE 0.5 MG TAB PO SCH (09:41)
[2016-10-17] MEDS: METOPROLOL TARTRATE 25 MG TAB PO SCH ×2 (09:41→21:25)
[2016-10-17] MEDS: NIACIN 500 MG EXTENDED RELEASE TAB PO SCH ×3 (09:41→18:00)
[2016-10-17] MEDS: ASPIRIN 81 MG CHEW TAB CHEW SCH (09:41)
[2016-10-17] MEDS: TAMSULOSIN HCL 0.4 MG CAP PO SCH ×2 (09:41→21:25)
[2016-10-17] MEDS: MAGNESIUM OXIDE 400 MG TAB PO SCH ×2 (09:41→21:25)
[2016-10-17] MEDS: LACTOBACILLUS ACIDOPHILUS TAB PO SCH ×3 (09:41→18:00)
[2016-10-17] MEDS: LISINOPRIL 10 MG TAB PO SCH (09:41)
[2016-10-17] MEDS: ESCITALOPRAM OXALATE 10 MG TAB PO SCH (09:41)
[2016-10-17] MEDS: PANTOPRAZOLE SOD 20 MG DELAYED RELEASE TAB PO SCH (09:41)
--- NOTE | 2016-10-17 11:05 | HHI.PR ---
Subjective Remarks Improving today/ ECHO reviewed and normal EF. Feels weak but overall improved. No cough Patient in nad. Says she did not have any chest pain overnight. No palpitations. No n/v/d/c. Had a BM yesterday. Eating better. Objective Vitals Vital Signs Date Time Temp Pulse Resp B/P Pulse Ox O2 Delivery O2 Flow Rate FiO2 10/17/16 09:55 97 10/17/16 09:55 Room Air 10/17/16 08:00 98.1 76 18 139/60 97 10/17/16 04:00 98.2 66 18 116/53 95 10/17/16 00:00 98.7 69 16 116/59 95 10/16/16 20:00 97.5 102 20 111/56 97 10/16/16 20:00 Room Air 10/16/16 16:00 98.2 79 20 141/67 95 10/16/16 12:00 98.3 74 20 128/61 96 I/O 10/16/16 10/16/16 10/16/16 10/17/16 10/17/16 10/17/16 07:00 15:00 23:00 07:00 15:00 23:00 Intake Total 1015 ml 1196 ml 1061 ml 0 ml Balance 1015 ml 1196 ml 1061 ml 0 ml Intake Oral 100 ml 480 ml 240 ml 0 ml IV Total 915 ml 716 ml 821 ml # Voids 3 4 2 3 # Bowel Movements 2 2 1 0 Result Diagram: 10/17/16 0651 10/17/16 0651 Imaging Last Impressions Abdomen/Pelvis CT 10/14/16 0957 Signed Impressions: Service Date/Time: Friday, October 14, 2016 15:13 - CONCLUSION: 1. Evidence of bilateral inguinal hernia repair with asymmetric appearance with possible reherniation left side. There is a noncalcified opacity with in the left inguinal hernia orifice which is of uncertain significance. Induration within the hernia as well as a surgically placed plug could both have this appearance. Recommend correlation with surgical procedural note to see whether a left inguinal plug was deployed. 2. Solitary nonobstructing calcified stone lower pole right kidney. 3. Bilateral pleural effusions, small, and some compressive atelectasis or infiltrate in the right costophrenic angle. 4. Calcified left iliac artery aneurysm. 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 Jos Burr MD Chest X-Ray 10/08/16 1821 Signed Impressions: Service Date/Time: Saturday, October 08, 2016 18:54 - CONCLUSION: No acute cardiopulmonary disease demonstrated. Fred Shanks MD Head CT 10/08/16 0000 Signed Impressions: Service Date/Time: Sunday, October 09, 2016 00:46 - CONCLUSION: Normal examination except fluid in both maxillary sinuses. Chuckie Pinedo MD Objective Remarks GENERAL: This is a pale, cachectic elderly male patient, who appears tired. SKIN: No rashes, ecchymoses or lesions. Cool and dry. HEAD: Atraumatic. Normocephalic. Temporal wasting noted. EYES: No scleral icterus. No injection or drainage. ENT: Nose without bleeding, purulent drainage. NECK: Trachea midline. No JVD or lymphadenopathy. CARDIOVASCULAR: Regular rate and rhythm without murmurs, gallops, or rubs. RESPIRATORY: Decreased breath sounds. No Cough. No wheezes, rales, or rhonchi. GASTROINTESTINAL: Abdomen soft mild abd pain left lower quadrant, nondistended. No guarding. MUSCULOSKELETAL: Extremities without clubbing, cyanosis, or edema. No calf tenderness. NEUROLOGICAL: Alert and oriented, appears tired. Answers questions appropriately to the best of his cognitive ability. A/P Problem List: (1) Diarrhea ICD Code: R19.7 Status: Acute (2) Dementia with aggressive behavior ICD Code: F03.91 Status: Acute (3) Declining functional status ICD Code: R53.81 Status: Acute (4) Leukocytosis ICD Code: D72.829 Status: Acute (5) Hypomagnesemia ICD Code: E83.42 Status: Acute (6) Acute renal failure ICD Code: N17.9 Status: Acute (7) Dehydration ICD Code: E86.0 Status: Acute Assessment and Plan Mr. Scott is a 71 year-old male who presented to the ER on 10/08/2016 from [facility] for evaluation of abnormal labs obtained at the facility: Worsening renal function, increased white count. The patient has been having functional/cognitive decline following back surgery performed in June 12, 2017. Noted with 34 beats of Vtach on tele 10/15. Patient without any chest pain/sob. VS stable. Lytes were replaced. Will recheck labs. Will check EKG, trop and ask cardiology for evaluation and clearance for DC. Cardiology recommends 2D ECHO normal EF 60% Diarrhea. With diarrhea again overnight 10/13 - lives at SNF - concern for C. Diff - check for c. diff neg on admission was negative. Will recheck for c diff as patient is on abx . Start probiotics. - will check CT abdomen/pelvis as symptoms persist - will check CBC, BMP , mag and phos Dementia with aggressive behaviors since June 12, 2016 ; now with accompanying functional decline - check CT of head for organic causes - check EEG to r/o seizure activity - Consult psych, appreciate recommendations. Patient is noted agitated on /off. - Seen by Dr Cueto, psych , appreciate recommendations. Leukocytosis - white blood count of 15.4 with neutrophilia on admission poss PNA, patient with cough and sputum production, started abx and is improving - CXR with no acute cardiopulmonary disease, however the patient is coughing yellow sputum, imaging might lag behind. Continue rocephin and azithro. leukocytosis improving. - patient with diarrhea on admission, resolved. - Repeat CBC in a.m. and follow results Anemia - hemoglobin 10.3, hct 30.3. on admission - no prior labs for comparison - Monitor./ H/H stable Acute renal failure/prerenal azotemia likely secondary to dehydration. Kidney indices improving. - BUN 70, creatinine 2.21, and estimated GFR 30 on admission. Follow trend. - NS bolus given in ER - Start IVF - Recheck bmp in a.m. and follow results Hypomagnesemia> Replaced with PO. Received also by IV mag as Mag severely low. Continue mag po PO daily 400 mg. Continue to monitor and replace. Hypernatremia, hyperchloremia,: change fluids to half normal saline at 83 cc/ hr. Monitor. DVT prophylaxis - Heparin 5000 units q8h subq Code Status DNR signed by patient on chart dated 07/04/2015 also was confirmed DNR code status with healthcare surrogate Neela Rivera, sister on admission Discussed Condition With patient, nurse Discharge plan Plan to discharge back to rehabilitation/ long-term facility. Discussed with case management for discharge planning Patient is off restraints for > 24 hours. Noted with beats of V tach, DC when cleared by cardiology Dr Malone. 2D echo done normal EF. POss DC today if remains stable and cleared by Dr Malone cardiology. Problem Qualifiers (1) Leukocytosis: Qualified Code: D72.829 - Leukocytosis, unspecified type (2) Acute renal failure: Qualified Code: N17.9 - Acute renal failure, unspecified acute renal failure type Pricila Garcia MD Oct 17, 2016 11:05
[2016-10-17] MEDS ORDERED: CEFT500T3 PO (11:10)
[2016-10-17] MEDS ORDERED: MAGNESIUM SULFATE 1 GM PREMIX 100 ML IV ONE (11:15)
[2016-10-17] MEDS: AZITHROMYCIN INJ 500 MG in SODIUM CHLOR 0.9% 250 ML INJ 250 ML IV SCH (11:38)
[2016-10-17] MEDS: cefTRIAXone INJ 1,000 MG in SODIUM CHLORIDE 0.9% INJ 100 ML IV SCH (11:38)
[2016-10-17] MEDS ORDERED: SODIUM CHLOR 0.9% 1000 ML INJ 1,000 ML IV ONE (12:15)
--- NOTE | 2016-10-17 18:48 | PD.CARD.PN ---
Subjective Subjective Remarks No CP or SOB Objective Medications Current Medications Medications (Trade) Dose Ordered Sig/Shanita Route Start Time Stop Time Status Last Admin (NS Flush) 2 ml UNSCH PRN IV FLUSH 10/08/16 20:30 (NS Flush) 2 ml BID IV FLUSH 10/08/16 21:00 10/17/16 09:00 (Narcan Inj) 0.4 mg UNSCH PRN IV 10/08/16 20:30 (Aspirin Chew) 81 mg DAILY CHEW 10/09/16 09:00 10/17/16 09:41 (Lipitor) 40 mg HS PO 10/09/16 21:00 10/16/16 21:13 (Lexapro) 10 mg DAILY PO 10/09/16 09:00 10/17/16 09:41 (Prinivil) 10 mg DAILY PO 10/09/16 09:00 10/17/16 09:41 (Lopressor) 25 mg BID PO 10/09/16 09:00 10/17/16 09:41 (risperDAL) 0.5 mg DAILY PO 10/09/16 09:00 10/17/16 09:41 (risperDAL) 1 mg HS PO 10/09/16 21:00 10/16/16 21:13 (Flomax) 0.4 mg BID PO 10/09/16 09:00 10/17/16 09:41 (Slo-Niacin) 500 mg TID PO 10/09/16 09:00 10/17/16 18:00 (Protonix) 20 mg DAILY PO 10/09/16 09:00 10/17/16 09:41 Heparin Sodium (Porcine) 5000 units 5,000 units Q8HR SQ 10/08/16 23:30 10/17/16 13:28 Ceftriaxone Sodium 1000 mg/ Sodium Chloride 100 ml @ 200 mls/hr Q24H IV 10/09/16 13:00 10/17/16 11:38 (Zithromax Inj/ NS 250 ml Inj) 250 ml @ 250 mls/hr Q24H IV 10/09/16 13:00 10/17/16 11:38 (Tylenol) 650 mg Q6HR PRN PO 10/09/16 13:30 10/09/16 14:25 (Haldol Inj) 2 mg Q6HR PRN IM 10/09/16 19:15 10/14/16 02:49 Lorazepam 1 mg 1 mg Q6H PRN IV PUSH 10/09/16 19:15 (1/2 NS 1000 ml Inj) 1,000 ml @ 84 mls/hr [id number] IV 10/12/16 15:30 10/17/16 13:28 (Lactinex) 1 tab TID PO 10/14/16 13:00 10/17/16 18:00 (Mag-Ox) 400 mg BID PO 10/15/16 21:00 10/17/16 09:41 Vital Signs / I&O Vital Signs Date Time Temp Pulse Resp B/P Pulse Ox O2 Delivery O2 Flow Rate FiO2 10/17/16 16:00 97.7 70 18 127/58 95 10/17/16 12:00 98.4 66 18 101/53 98 10/17/16 09:55 97 10/17/16 09:55 Room Air 10/17/16 08:00 98.1 76 18 139/60 97 10/17/16 04:00 98.2 66 18 116/53 95 10/17/16 00:00 98.7 69 16 116/59 95 10/16/16 20:00 97.5 102 20 111/56 97 10/16/16 20:00 Room Air I/O 10/16/16 10/16/16 10/16/16 10/17/16 10/17/16 10/17/16 07:00 15:00 23:00 07:00 15:00 23:00 Intake Total 1015 ml 1196 ml 1061 ml 0 ml 480 ml Balance 1015 ml 1196 ml 1061 ml 0 ml 480 ml Intake Oral 100 ml 480 ml 240 ml 0 ml 480 ml IV Total 915 ml 716 ml 821 ml # Voids 3 4 2 3 5 # Bowel Movements 2 2 1 0 1 Physical Exam GENERAL: In NAD SKIN: Warm and dry. HEAD: Normocephalic. EYES: No scleral icterus. No injection or drainage. NECK: Supple, trachea midline. No JVD or lymphadenopathy. CARDIOVASCULAR: Regular rate and rhythm without murmurs, gallops, or rubs. RESPIRATORY: Breath sounds equal bilaterally. No accessory muscle use. GASTROINTESTINAL: Abdomen soft, non-tender, nondistended. MUSCULOSKELETAL: No cyanosis, or edema. UE deformities. Laboratory Laboratory Tests Test 4/26/17 06:51 White Blood Count 5.0 TH/MM3 Red Blood Count 2.95 MIL/MM3 Hemoglobin 9.1 GM/DL Hematocrit 26.0 % Mean Corpuscular Volume 88.1 FL Mean Corpuscular Hemoglobin 30.9 PG Mean Corpuscular Hemoglobin 35.0 % Concent Red Cell Distribution Width 14.6 % Platelet Count 130 TH/MM3 Mean Platelet Volume 7.7 FL Neutrophils (%) (Auto) 72.1 % Lymphocytes (%) (Auto) 12.0 % Monocytes (%) (Auto) 12.4 % Eosinophils (%) (Auto) 2.8 % Basophils (%) (Auto) 0.7 % Neutrophils # (Auto) 3.6 TH/MM3 Lymphocytes # (Auto) 0.6 TH/MM3 Monocytes # (Auto) 0.6 TH/MM3 Eosinophils # (Auto) 0.1 TH/MM3 Basophils # (Auto) 0.0 TH/MM3 CBC Comment DIFF FINAL Differential Comment Sodium Level 140 MEQ/L Potassium Level 3.5 MEQ/L Chloride Level 105 MEQ/L Carbon Dioxide Level 29.9 MEQ/L Anion Gap 5 MEQ/L Blood Urea Nitrogen 6 MG/DL Creatinine 0.81 MG/DL Estimat Glomerular Filtration 94 ML/MIN Rate Random Glucose 124 MG/DL Calcium Level 8.3 MG/DL Phosphorus Level 2.7 MG/DL Magnesium Level 1.4 MG/DL Imaging Last Impressions Abdomen/Pelvis CT 10/14/16 0957 Signed Impressions: Service Date/Time: Friday, October 14, 2016 15:13 - CONCLUSION: 1. Evidence of bilateral inguinal hernia repair with asymmetric appearance with possible reherniation left side. There is a noncalcified opacity with in the left inguinal hernia orifice which is of uncertain significance. Induration within the hernia as well as a surgically placed plug could both have this appearance. Recommend correlation with surgical procedural note to see whether a left inguinal plug was deployed. 2. Solitary nonobstructing calcified stone lower pole right kidney. 3. Bilateral pleural effusions, small, and some compressive atelectasis or infiltrate in the right costophrenic angle. 4. Calcified left iliac artery aneurysm. 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 Jos Burr MD Chest X-Ray 10/08/16 9207 Signed Impressions: Service Date/Time: Saturday, October 08, 2016 18:54 - CONCLUSION: No acute cardiopulmonary disease demonstrated. Fred Shanks MD Head CT 10/08/16 0000 Signed Impressions: Service Date/Time: Sunday, October 09, 2016 00:46 - CONCLUSION: Normal examination except fluid in both maxillary sinuses. Chuckie Pinedo MD Assessment and Plan Problem List: (1) Wide-complex tachycardia (2) CAD, multiple vessel (3) S/P coronary artery bypass graft x 6 (4) Diabetes mellitus (5) Hypertension (6) Hyperlipidemia (7) Dementia with aggressive behavior Assessment and Plan Echo w EF 45-50% and mild LVH. WCT c/w SVT w aberrancy. No recurrent tachyarrhythmias. Increase activity. Continue current program. Peri Malone MD Oct 17, 2016 18:48
[2016-10-17] MEDS: risperiDONE 1 MG TAB PO SCH (21:25)
[2016-10-17] MEDS: ATORVASTATIN 40 MG TAB PO SCH (21:25)
[2016-10-18] VITALS: BP 141/65; PULSE 75; RESP 18; TEMP 97.2; O2SAT 98
[2016-10-18] MEDS: SODIUM CHLOR 0.45% 1000 ML INJ 1,000 ML IV SCH (02:35)
[2016-10-18 04:00] VITALS: BP 129/61; PULSE 60; RESP 18; TEMP 97.4; O2SAT 93
[2016-10-18] MEDS: HEPARIN SODIUM - SQ 10,000 UNITS/ML VIAL SQ SCH (04:47)
[2016-10-18 08:00] VITALS: BP 144/62; PULSE 77; RESP 18; TEMP 97.9; O2SAT 95
[2016-10-18] MEDS: NIACIN 500 MG EXTENDED RELEASE TAB PO SCH ×2 (08:45→12:59)
[2016-10-18] MEDS: risperiDONE 0.5 MG TAB PO SCH (08:46)
[2016-10-18] MEDS: METOPROLOL TARTRATE 25 MG TAB PO SCH (08:46)
[2016-10-18] MEDS: ESCITALOPRAM OXALATE 10 MG TAB PO SCH (08:47)
[2016-10-18] MEDS: LACTOBACILLUS ACIDOPHILUS TAB PO SCH ×2 (08:47→12:59)
[2016-10-18] MEDS: MAGNESIUM OXIDE 400 MG TAB PO SCH (08:47)
[2016-10-18] MEDS: ASPIRIN 81 MG CHEW TAB CHEW SCH (08:47)
[2016-10-18] MEDS: PANTOPRAZOLE SOD 20 MG DELAYED RELEASE TAB PO SCH (08:47)
[2016-10-18] MEDS: TAMSULOSIN HCL 0.4 MG CAP PO SCH (08:48)
[2016-10-18] MEDS: SODIUM CHLORIDE 0.9% FLUSH 10 ML FLUSH IV FLUSH SCH (08:48)
[2016-10-18] MEDS: LISINOPRIL 10 MG TAB PO SCH (08:48)
[2016-10-18 12:00] VITALS: BP 101/50; PULSE 57; RESP 18; TEMP 98; O2SAT 96
--- NOTE | 2016-10-18 12:42 | PD.CARD.PN ---
Subjective Subjective Remarks No CP or SOB, feels fine Objective Medications Current Medications Medications (Trade) Dose Ordered Sig/Shanita Route Start Time Stop Time Status Last Admin (NS Flush) 2 ml UNSCH PRN IV FLUSH 10/08/16 20:30 (NS Flush) 2 ml BID IV FLUSH 10/08/16 21:00 10/18/16 08:48 (Narcan Inj) 0.4 mg UNSCH PRN IV 10/08/16 20:30 (Aspirin Chew) 81 mg DAILY CHEW 10/09/16 09:00 10/18/16 08:47 (Lipitor) 40 mg HS PO 10/09/16 21:00 10/17/16 21:25 (Lexapro) 10 mg DAILY PO 10/09/16 09:00 10/18/16 08:47 (Prinivil) 10 mg DAILY PO 10/09/16 09:00 10/18/16 08:48 (Lopressor) 25 mg BID PO 10/09/16 09:00 10/18/16 08:46 (risperDAL) 0.5 mg DAILY PO 10/09/16 09:00 10/18/16 08:46 (risperDAL) 1 mg HS PO 10/09/16 21:00 10/17/16 21:25 (Flomax) 0.4 mg BID PO 10/09/16 09:00 10/18/16 08:48 (Slo-Niacin) 500 mg TID PO 10/09/16 09:00 10/18/16 08:45 (Protonix) 20 mg DAILY PO 10/09/16 09:00 10/18/16 08:47 Heparin Sodium (Porcine) 5000 units 5,000 units Q8HR SQ 10/08/16 23:30 10/18/16 04:47 Ceftriaxone Sodium 1000 mg/ Sodium Chloride 100 ml @ 200 mls/hr Q24H IV 10/09/16 13:00 10/17/16 11:38 (Zithromax Inj/ NS 250 ml Inj) 250 ml @ 250 mls/hr Q24H IV 10/09/16 13:00 10/17/16 11:38 (Tylenol) 650 mg Q6HR PRN PO 10/09/16 13:30 10/09/16 14:25 (Haldol Inj) 2 mg Q6HR PRN IM 10/09/16 19:15 10/14/16 02:49 Lorazepam 1 mg 1 mg Q6H PRN IV PUSH 10/09/16 19:15 (1/2 NS 1000 ml Inj) 1,000 ml @ 84 mls/hr [id number] IV 10/12/16 15:30 10/17/16 13:28 (Lactinex) 1 tab TID PO 10/14/16 13:00 10/18/16 08:47 (Mag-Ox) 400 mg BID PO 10/15/16 21:00 10/18/16 08:47 Vital Signs / I&O Vital Signs Date Time Temp Pulse Resp B/P Pulse Ox O2 Delivery O2 Flow Rate FiO2 10/18/16 12:00 98.0 57 18 101/50 96 10/18/16 08:00 97.9 77 18 144/62 95 10/18/16 04:00 97.4 60 18 129/61 93 10/18/16 00:00 97.2 75 18 141/65 98 10/17/16 20:00 Room Air 10/17/16 20:00 97.9 70 18 116/56 95 10/17/16 20:00 72 10/17/16 16:00 97.7 70 18 127/58 95 I/O 10/17/16 10/17/16 10/17/16 10/18/16 10/18/16 10/18/16 07:00 15:00 23:00 07:00 15:00 23:00 Intake Total 0 ml 480 ml 933 ml 100 ml Output Total 100 ml Balance 0 ml 480 ml 933 ml 0 ml Intake Oral 0 ml 480 ml 120 ml 100 ml IV Total 813 ml Output Urine Total 100 ml # Voids 3 5 0 2 # Bowel Movements 0 1 0 0 Physical Exam GENERAL: In NAD SKIN: Warm and dry. HEAD: Normocephalic. EYES: No scleral icterus. No injection or drainage. NECK: Supple, trachea midline. No JVD or lymphadenopathy. CARDIOVASCULAR: Regular rate and rhythm without murmurs, gallops, or rubs. RESPIRATORY: Breath sounds equal bilaterally. No accessory muscle use. GASTROINTESTINAL: Abdomen soft, non-tender, nondistended. MUSCULOSKELETAL: No cyanosis, or edema. UE deformities. Laboratory Laboratory Tests Test 10/14/16 10/15/16 10/15/16/26/17 10:50 05:30 15:45 06:51 Stool C. difficile Toxin (PCR) NEGATIVE Stl C. difficile Toxin PRESUMPTIVE Epiderm 027 NEGATIVE Platelet Estimate LOW Platelet Morphology Comment NORMAL Acanthocytes OCC Total Bilirubin 0.2 MG/DL Aspartate Amino Transf 43 U/L (AST/SGOT) Alanine Aminotransferase 36 U/L (ALT/SGPT) Alkaline Phosphatase 68 U/L Troponin I LESS THAN 0.02 NG/ML Total Protein 4.9 GM/DL Albumin 2.2 GM/DL White Blood Count 5.0 TH/MM3 Red Blood Count 2.95 MIL/MM3 Hemoglobin 9.1 GM/DL Hematocrit 26.0 % Mean Corpuscular Volume 88.1 FL Mean Corpuscular Hemoglobin 30.9 PG Mean Corpuscular Hemoglobin 35.0 % Concent Red Cell Distribution Width 14.6 % Platelet Count 130 TH/MM3 Mean Platelet Volume 7.7 FL Neutrophils (%) (Auto) 72.1 % Lymphocytes (%) (Auto) 12.0 % Monocytes (%) (Auto) 12.4 % Eosinophils (%) (Auto) 2.8 % Basophils (%) (Auto) 0.7 % Neutrophils # (Auto) 3.6 TH/MM3 Lymphocytes # (Auto) 0.6 TH/MM3 Monocytes # (Auto) 0.6 TH/MM3 Eosinophils # (Auto) 0.1 TH/MM3 Basophils # (Auto) 0.0 TH/MM3 CBC Comment DIFF FINAL Differential Comment Sodium Level 140 MEQ/L Potassium Level 3.5 MEQ/L Chloride Level 105 MEQ/L Carbon Dioxide Level 29.9 MEQ/L Anion Gap 5 MEQ/L Blood Urea Nitrogen 6 MG/DL Creatinine 0.81 MG/DL Estimat Glomerular Filtration 94 ML/MIN Rate Random Glucose 124 MG/DL Calcium Level 8.3 MG/DL Phosphorus Level 2.7 MG/DL Magnesium Level 1.4 MG/DL Imaging Last Impressions Abdomen/Pelvis CT 10/14/16 0957 Signed Impressions: Service Date/Time: Friday, October 14, 2016 15:13 - CONCLUSION: 1. Evidence of bilateral inguinal hernia repair with asymmetric appearance with possible reherniation left side. There is a noncalcified opacity with in the left inguinal hernia orifice which is of uncertain significance. Induration within the hernia as well as a surgically placed plug could both have this appearance. Recommend correlation with surgical procedural note to see whether a left inguinal plug was deployed. 2. Solitary nonobstructing calcified stone lower pole right kidney. 3. Bilateral pleural effusions, small, and some compressive atelectasis or infiltrate in the right costophrenic angle. 4. Calcified left iliac artery aneurysm. 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 Jos Burr MD Chest X-Ray 10/08/16 1821 Signed Impressions: Service Date/Time: Saturday, October 08, 2016 18:54 - CONCLUSION: No acute cardiopulmonary disease demonstrated. Fred Shanks MD Head CT 10/08/16 0000 Signed Impressions: Service Date/Time: Sunday, October 09, 2016 00:46 - CONCLUSION: Normal examination except fluid in both maxillary sinuses. Chuckie Pinedo MD Assessment and Plan Problem List: (1) Wide-complex tachycardia (2) CAD, multiple vessel (3) S/P coronary artery bypass graft x 6 (4) Diabetes mellitus (5) Hypertension (6) Hyperlipidemia (7) Dementia with aggressive behavior Assessment and Plan No new cardiac issues. Echo w EF 45-50% and mild LVH. WCT c/w SVT w aberrancy. No recurrent tachyarrhythmias. Increase activity. Continue current program. Discharge home as planned. Peri Malone MD Oct 18, 2016 12:42
[2016-10-18] MEDS: AZITHROMYCIN INJ 500 MG in SODIUM CHLOR 0.9% 250 ML INJ 250 ML IV SCH (13:00)
[2016-10-18] MEDS: cefTRIAXone INJ 1,000 MG in SODIUM CHLORIDE 0.9% INJ 100 ML IV SCH (13:01)
--- NOTE | 2016-10-18 13:57 | HHI.PR ---
Subjective Remarks Eating in the chair. No chest pain or palpitations overnight./ No sob, n/v/d/c. Wants to go home. Objective Vitals Vital Signs Date Time Temp Pulse Resp B/P Pulse Ox O2 Delivery O2 Flow Rate FiO2 10/18/16 12:00 98.0 57 18 101/50 96 10/18/16 08:00 97.9 77 18 144/62 95 10/18/16 04:00 97.4 60 18 129/61 93 10/18/16 00:00 97.2 75 18 141/65 98 10/17/16 20:00 Room Air 10/17/16 20:00 97.9 70 18 116/56 95 10/17/16 20:00 72 10/17/16 16:00 97.7 70 18 127/58 95 I/O 10/17/16 10/17/16 10/17/16 10/18/16 10/18/16 10/18/16 07:00 15:00 23:00 07:00 15:00 23:00 Intake Total 0 ml 480 ml 933 ml 100 ml Output Total 100 ml Balance 0 ml 480 ml 933 ml 0 ml Intake Oral 0 ml 480 ml 120 ml 100 ml IV Total 813 ml Output Urine Total 100 ml # Voids 3 5 0 2 # Bowel Movements 0 1 0 0 Result Diagram: 10/17/1651 10/17/16650 Objective Remarks GENERAL: This is a pale, cachectic elderly male patient, who appears tired. SKIN: No rashes, ecchymoses or lesions. Cool and dry. HEAD: Atraumatic. Normocephalic. Temporal wasting noted. EYES: No scleral icterus. No injection or drainage. ENT: Nose without bleeding, purulent drainage. NECK: Trachea midline. No JVD or lymphadenopathy. CARDIOVASCULAR: Regular rate and rhythm without murmurs, gallops, or rubs. RESPIRATORY: Decreased breath sounds. No Cough. No wheezes, rales, or rhonchi. GASTROINTESTINAL: Abdomen soft mild abd pain left lower quadrant, nondistended. No guarding. MUSCULOSKELETAL: Extremities without clubbing, cyanosis, or edema. No calf tenderness. NEUROLOGICAL: Alert and oriented, appears tired. Answers questions appropriately to the best of his cognitive ability. A/P Problem List: (1) Diarrhea ICD Code: R19.7 Status: Acute (2) Dementia with aggressive behavior ICD Code: F03.91 Status: Acute (3) Declining functional status ICD Code: R53.81 Status: Acute (4) Leukocytosis ICD Code: D72.829 Status: Acute (5) Hypomagnesemia ICD Code: E83.42 Status: Acute (6) Acute renal failure ICD Code: N17.9 Status: Acute (7) Dehydration ICD Code: E86.0 Status: Acute Assessment and Plan Mr. Scott is a 71 year-old male who presented to the ER on 10/08/2016 from [facility] for evaluation of abnormal labs obtained at the facility: Worsening renal function, increased white count. The patient has been having functional/cognitive decline following back surgery performed in June 12, 2017. Noted with 34 beats of Vtach on tele 10/15. Patient without any chest pain/sob. VS stable. Lytes were replaced. Will recheck labs. Will check EKG, trop and ask cardiology for evaluation and clearance for DC. Cardiology recommends 2D ECHO normal EF 60% Diarrhea. With diarrhea again overnight 10/13 - lives at SNF - concern for C. Diff - check for c. diff neg on admission was negative. Will recheck for c diff as patient is on abx . Start probiotics. - will check CT abdomen/pelvis as symptoms persist - will check CBC, BMP , mag and phos Dementia with aggressive behaviors since June 12, 2016 ; now with accompanying functional decline - check CT of head for organic causes - check EEG to r/o seizure activity - Consult psych, appreciate recommendations. Patient is noted agitated on /off. - Seen by Dr Cueto, psych , appreciate recommendations. Leukocytosis - white blood count of 15.4 with neutrophilia on admission poss PNA, patient with cough and sputum production, started abx and is improving - CXR with no acute cardiopulmonary disease, however the patient is coughing yellow sputum, imaging might lag behind. Continue rocephin and azithro. leukocytosis improving. - patient with diarrhea on admission, resolved. - Repeat CBC in a.m. and follow results Anemia - hemoglobin 10.3, hct 30.3. on admission - no prior labs for comparison - Monitor./ H/H stable Acute renal failure/prerenal azotemia likely secondary to dehydration. Kidney indices improving. - BUN 70, creatinine 2.21, and estimated GFR 30 on admission. Follow trend. - NS bolus given in ER - Start IVF - Recheck bmp in a.m. and follow results Hypomagnesemia> Replaced with PO. Received also by IV mag as Mag severely low. Continue mag po PO daily 400 mg. Continue to monitor and replace. Hypernatremia, hyperchloremia,: change fluids to half normal saline at 83 cc/ hr. Monitor. DVT prophylaxis - Heparin 5000 units q8h subq Code Status DNR signed by patient on chart dated 07/04/2015 also was confirmed DNR code status with healthcare surrogate Neela Rivera, sister on admission Discussed Condition With patient, nurse Discharge plan Plan to discharge back to rehabilitation/ long-term facility. Discussed with case management for discharge planning Patient is off restraints for > 24 hours. Noted with arrhythmia. Seen by cardiology Dr Malone. 2D echo done normal EF. Plan to DC today, I discussed with cardiology , cleared by Dr Malone cardiology for DC. Discharge Planning Cleared for DC, DC to SNF when arrangements done Problem Qualifiers (1) Leukocytosis: Qualified Code: D72.829 - Leukocytosis, unspecified type (2) Acute renal failure: Qualified Code: N17.9 - Acute renal failure, unspecified acute renal failure type Pricila Garcia MD Oct 18, 2016 13:57
== END 2016-10-18 15:20 | DRG 683 ==
LOC: NEPC 18:05 → NEDA 19:56 → NEPGCP 23:08 → N04B 10-10 16:00
PROVIDERS: ADMIT Hospitalist; ATTEND Hospitalist
DX: N17.9 Acute kidney failure, unspecified (principal); F03.91 Unspecified dementia, unspecified severity, with behavioral disturbance; I47.2 Ventricular tachycardia; E87.0 Hyperosmolality and hypernatremia; R64 Cachexia; Z68.21 Body mass index [BMI] 21.0-21.9, adult; D64.9 Anemia, unspecified; E11.9 Type 2 diabetes mellitus without complications; Z79.84 Long term (current) use of oral hypoglycemic drugs; I10 Essential (primary) hypertension; I50.9 Heart failure, unspecified; E87.8 Other disorders of electrolyte and fluid balance, not elsewhere classified; J44.9 Chronic obstructive pulmonary disease, unspecified; E83.42 Hypomagnesemia; E83.51 Hypocalcemia; E86.0 Dehydration; R19.7 Diarrhea, unspecified; D72.829 Elevated white blood cell count, unspecified; K40.90 Unilateral inguinal hernia, without obstruction or gangrene, not specified as recurrent; I25.10 Atherosclerotic heart disease of native coronary artery without angina pectoris; Z79.82 Long term (current) use of aspirin; Z95.1 Presence of aortocoronary bypass graft; Z66 Do not resuscitate; Z91.81 History of falling; E78.5 Hyperlipidemia, unspecified; Z87.891 Personal history of nicotine dependence; Z85.46 Personal history of malignant neoplasm of prostate; Z92.3 Personal history of irradiation
CPT/HCPCS: 70450; 71010; 74177; 76937; 80048; 80053; 81001; 83735; 84100; 84484; 85025; 87040; 87493; 93005; 93306; 95819; J0456; J0610; J0696; J1630; J1644; J3475; J7030; J7050; P9612; Q9963; Q9967